=== PATIENT | female | born 1960 | race Caucasian/White ===

== ENCOUNTER → 2016-11-13 | Outpatient (CLI) | payer BC ==
[~2016-11-13] MED LIST: CLBCRM30 TOP; CLOB-65 TOP; FLUT0.15 NAE; LACO50TA PO; MULT-506 PO; ONDA4TAB10 SL; ONDA4TAB46 PO; OXCA1TAB PO; OXCA1TAB28 PO; OXCA1TAB29 PO; OXYC1TAB3 PO; POTA99TA3 PO; POTASSIUM PO; SULF800T23 PO; VALA500T60 PO; VERA240C2 PO; VITA400C15 PO; VITACAP37 PO
== END | disposition home or self-care (01) ==
LOC: C.PAPS 10:18
PROVIDERS: ATTEND Obstetrics & Gynecology
DX: Z01.419 Encounter for gynecological examination (general) (routine) without abnormal findings (principal); Z87.42 Personal history of other diseases of the female genital tract

== ENCOUNTER → 2017-01-12 | Outpatient (CLI) | payer BC ==
[~2017-01-12] MED LIST changes: +GADAVIST IV PRN
--- NOTE | 2017-01-12 14:54 | DIAGNOSTIC IMAGING REPORT ---
MRI OF THE BRAIN COMBO CLINICAL HISTORY: Seizure. History of previous craniotomy. COMPARISON STUDY: MRI of the brain dated 01/06/2016. TECHNIQUE: MRI of the brain was performed utilizing various T1 and T2-weighted sequences in the axial, sagittal, and coronal planes. Contrast-enhanced sequences were acquired following the administration of 5.5 cc of Gadavist. The examination is performed using the seizure protocol. FINDINGS: Brain parenchyma: There is minimal patchy subcortical and periventricular microangiopathic disease. Again seen is right posterior parietal encephalomalacia from resection of a large intracranial mass lesion. There is no evidence of recurrent or residual enhancing mass. Mild nonspecific enhancement is seen along the operative site, likely representing postoperative change. This has diminished from 01/06/2016. There is no evidence of hemorrhage or mass effect. There is no restricted diffusion typical for acute ischemia. [place]-white matter differentiation is preserved. Minimal postoperative extra-axial fluid is again seen at the right posterior vertex. The cerebellar tonsils are normal in configuration. Ventricles, sulci, and cisterns: Normal in configuration. Pituitary and sella: Unremarkable. Intracranial vasculature: Normal flow voids are maintained at the skull base. Orbits: The bony orbits are grossly intact. Orbital contents are normal in appearance. Sinuses and mastoids: There is a large right mastoid effusion. The left mastoid air vessels are well-pneumatized. Mild mucosal thickening is seen within the ethmoid sinuses. The remaining paranasal sinuses are clear. Calvarium: There are postoperative changes from right-sided craniotomy. No destructive calvarial lesion is seen. Cervical cord: Partially visualized cervical spinal cord is normal in morphology and signal intensity. IMPRESSION: 1. Again seen are postoperative changes and encephalomalacia from a right posterior parietal meningioma resection. There is no evidence of recurrent/residual enhancing mass lesion. 2. Mild enhancement along the resection margin is likely related to postoperative change, and this has decreased from 01/06/2016. 3. There is no hemorrhage, mass effect, or evidence of acute ischemia. 4. Right mastoid effusion. Electronically signed by: Don Baum M.D. 01/12/2017 2:52 PM Dictated Date/Time: 01/12/2017 2:46 PM
== END | disposition home or self-care (01) ==
LOC: C.MRI 13:35
PROVIDERS: ATTEND Psychiatry & Neurology Neurology
DX: R93.8 Abnormal findings on diagnostic imaging of other specified body structures (principal); G40.109 Localization-related (focal) (partial) symptomatic epilepsy and epileptic syndromes with simple partial seizures, not intractable, without status epilepticus; H74.8X1 Other specified disorders of right middle ear and mastoid

== ENCOUNTER → 2017-02-02 | Outpatient (CLI) | payer BC ==
[~2017-02-02] MED LIST changes: -GADAVIST IV PRN
== END | disposition home or self-care (01) ==
LOC: C.LABSPEC 15:34
PROVIDERS: ATTEND Obstetrics & Gynecology
DX: N76.0 Acute vaginitis (principal)

== ENCOUNTER → 2017-03-04 | Outpatient (CLI) | payer BC ==
[2017-03-04 14:42] LABS: BASO ABS # 0.01 K/uL (0-0.2); COMPLETE YES; EOS % 0.4 %; HEMATOCRIT 41.9 % (37-47); IG% 0.3 %; LYMPH % 4.5 %; LYMPH ABS # 0.96 K/uL (1.2-3.4); MEAN CELL VOLUME 97.9 fL (80-100); MEAN CORPUSCULAR HEMOGLOBIN 33.9 pg (25-34); MEAN CORPUSCULAR HGB CONC 34.6 g/dl (32-36); MEAN PLATELET VOLUME 10.1 fL (7.4-10.4); MONO % 3.7 %; NEUT % 91.1 %; PLATELET COUNT 260 K/uL (130-400); RED BLOOD COUNT 4.28 M/uL (4.2-5.4); WHITE BLOOD COUNT 21.37 K/uL (4.8-10.8)
[2017-03-04 14:55] LABS: URINE APPEARANCE CLEAR (CLEAR); URINE BILIRUBIN NEG (NEG); URINE COLOR YELLOW; URINE EPITHELIAL CELL AUTO 0-5 /lpf (0-5); URINE NITRITE NEG (NEG); URINE PH 6.5 (4.5-7.5); URINE SPECIFIC GRAVITY 1.021 (1.000-1.030); UROBILINOGEN NEG (NEG)
[2017-03-04 14:58] LABS: MANUAL MICROSCOPIC REQUIRED? NO; REVIEW REQ? NO
[2017-03-04 15:39] LABS: ALT/SGPT 37 U/L (12-78); BLOOD UREA NITROGEN 16 mg/dl (7-18); BUN/CREATININE RATIO 22.3 (10-20); CALCIUM 8.9 mg/dl (8.5-10.1); CARBON DIOXIDE 26 mmol/L (21-32); CHLORIDE 101 mmol/L (98-107); CREATININE 0.73 mg/dl (0.60-1.20); GLUCOSE 79 mg/dl (70-99); POTASSIUM 3.9 mmol/L (3.5-5.1); SODIUM 137 mmol/L (136-145)
[2017-03-04 15:42] LABS: ALB/GLOB RATIO 1.1 (0.9-2); ALKALINE PHOSPHATASE 102 U/L (45-117); AST/SGOT 28 U/L (15-37)
== END | disposition home or self-care (01) ==
LOC: C.LAB1850 13:05
PROVIDERS: ATTEND Obstetrics & Gynecology
DX: G40.109 Localization-related (focal) (partial) symptomatic epilepsy and epileptic syndromes with simple partial seizures, not intractable, without status epilepticus (principal); R39.9 Unspecified symptoms and signs involving the genitourinary system

== ENCOUNTER 2017-04-11 15:16 | Emergency (ER) | payer BC ==
[~2017-04-11] VITALS: Ht 157.5 cm; Wt 60.8 kg
[~2017-04-11 15:16] MED LIST changes: -CLBCRM30 TOP; -LACO50TA PO; -ONDA4TAB10 SL; -ONDA4TAB46 PO; -OXCA1TAB29 PO; -OXYC1TAB3 PO; -POTA99TA3 PO; -SULF800T23 PO; -VITACAP37 PO
[2017-04-11 15:19] VITALS: Ht 157.5 cm; Wt 60.8 kg
[2017-04-11] MEDS ORDERED: CLBCRM30 TOP (15:46)
[2017-04-11] MEDS ORDERED: VITACAP37 PO (15:46)
[2017-04-11] MEDS ORDERED: LACO50TA PO (15:46)
[2017-04-11] MEDS ORDERED: POTA99TA3 PO (15:46)
[2017-04-11] MEDS ORDERED: OXCA1TAB29 PO (15:46)
[2017-04-11] MEDS ORDERED: ACETAMINOPHEN IV 1,000 MG in EMPTY BAG 0 ML IV STA (16:03)
[2017-04-11] MEDS ORDERED: ONDANSETRON INJ 2 MG/ML 2 ML VIAL IV STA (16:03)
[2017-04-11] MEDS ORDERED: SODIUM CHLORIDE 0.9% 1000ML 1,000 ML IV STA (16:03)
[2017-04-11] MEDS ORDERED: MoRPHine SULFATE 10 MG/ML CARP/VIAL IV STA (16:03)
--- NOTE | 2017-04-11 16:18 | EMERGENCY ROOM VISIT NOTE ---
History First contact with patient: 15:43 Chief Complaint: FLANK PAIN Stated Complaint: PAIN IN L KIDNEY AREA,POSSIBLE KIDNEY STONE History of Present Illness The patient is a 56 year old female who presents to the Emergency Room with complaints of left flank pain that started suddenly at 11 AM today and has progressively worsened, radiating around to her left abdomen. Associated nausea and dry heaves, but she has not vomited. She states this isn't new pain and she has never had this before. She took ibuprofen at 11:30, which has not helped the pain at all. She does admit to occasional heavy drinking on the weekend, and states she drank an entire bottle of theron last night as well as some other drinks. She states she has never had any issues with withdrawal from her alcohol use. She denies any illicit drug use she does note yesterday that she had some blood in her urine, but did not have any other symptoms of dysuria or frequency. She was treated for UTI about a month ago with antibiotics, and states this cleared up without complication. She denies chest pain, shortness of breath, palpitations, dizziness or passing out, fevers or chills, diarrhea, constipation, rash. She denies any history of kidney stones in the past. Patient denies chance of , states she went through menopause over 4 years ago. Review of Systems A complete 10 point review of systems was reviewed with the patient with pertinent positives and negatives as per history of present illness. All else were negative. Past Medical/Surgical History Medical Problems: (1) Hypertension Family History Patient reports no known family medical history. Social History Smoking Status: Former Smoker Marital Status: in relationship Housing Status: lives with significant other Occupation Status: employed Current/Historical Medications Scheduled Lacosamide (Vimpat), 50 MG PO BID Multivitamin (Multivitamin), 1 TAB PO QAM Ondasetron Odt (Zofran Odt), 4 MG SL Q8H Oxcarbazepine (Oxtellar Xr), 1,800 MG PO QPM Potassium (Gnp Potassium), Unknown Dose PO QAM Sulfa/Trimethoprim (Bactrim Ds 800MG/160MG), 1 TAB PO BID Valacyclovir (Valtrex), 1 TAB PO DAILY Verapamil Hcl (Verapamil Hcl Er), 1 CAP PO QAM Vitamin E (E-400), 400 UNITS PO DAILY Scheduled PRN Clobetasol Propionate (Clobetasol Propionate Cream 0.05%), 1 APPLN TOP BID PRN for AFFECTED SKIN AREA Fluticasone Propionate (Nasal) (Flonase Allergy Relief), 1 SPRAYS KAYCEE HS PRN for Seasonal Allergies Oxycodone Ir (Roxicodone Ir), 1-2 TAB PO Q6H PRN for Severe Pain Allergies Coded Allergies: Benzoyl Peroxide (Verified Allergy, Mild, ITCHING/RASH, 04/11/17) Physical Exam Vital Signs Date Time Temp Pulse Resp B/P (MAP) Pulse Ox O2 Delivery O2 Flow Rate FiO2 04/11/17 21:09 82 18 128/76 98 04/11/17 20:19 36.6 97 18 04/11/17 19:45 100 18 136/78 95 Room Air 04/11/17 17:13 83 18 126/79 100 Room Air 04/11/17 16:47 66 04/11/17 15:19 36.4 60 18 109/71 97 Room Air Physical Exam CONSTITUTIONAL: No acute distress, but appears in a great deal of pain, fidgeting and rolling around in the stretcher and clutching her left side. She does appear moderately dehydrated. Alert and oriented X 4 with normal affect. HEENT: Normocephalic, atraumatic. Pupils equal, round and reactive to light, EOMI. TMs normal. Pharynx normal. Dry mucous membranes. NECK: Supple, full active range of motion without discomfort. RESPIRATORY: Clear to auscultation bilaterally with no wheezing, crackles, rhonchi or stridor. Equal expansion bilaterally. CARDIOVASCULAR: Regular rate and rhythm with no murmurs, rubs or gallops. Normal peripheral perfusion. No edema. GASTROINTESTINAL: Tender to palpation in the left upper quadrant and left flank. Soft and nondistended. Bowel sounds present in all quadrants. Positive CVA tenderness on the left. MUSCULOSKELETAL: Full range of motion of all joints without discomfort. INTEGUMENTARY: No rash or other significant dermatologic conditions noted. NEUROLOGIC: Cranial nerves II-XII grossly intact. No focal neurologic deficits noted. Medical Decision & Procedures ER Provider Diagnostic Interpretation: CT SCAN OF THE ABDOMEN AND PELVIS WITHOUT IV CONTRAST CLINICAL HISTORY: Left flank pain. COMPARISON STUDY: No priors. TECHNIQUE: CT scan of the abdomen and pelvis is performed from the lung bases to the proximal femora. Images are reviewed in the axial, sagittal, and coronal planes. IV contrast was not administered for this examination as per the referring clinician. Automated dose control exposure was utilized. The examination is modestly degraded by motion artifact. CT DOSE: 593.57 mGycm FINDINGS: Lung bases: The heart is normal in size and without pericardial effusion. There is a 4 mm right lower lobe pulmonary nodule seen on image #11. The lung bases are clear. Liver: The unenhanced liver is normal in size, contour, and attenuation. There is no intrahepatic biliary ductal dilatation. Gallbladder: Unremarkable. Spleen: Normal in size and attenuation. Pancreas: The unenhanced pancreas is grossly unremarkable. Adrenal glands: Unremarkable. Kidneys: The unenhanced kidneys are normal in size. There is a 10 mm obstructing calculus in the left proximal ureter at the level of L3 seen on axial image #155. This causes moderate left-sided hydronephrosis. There is associated left-sided perinephric stranding and fluid. There are least 3 additional nonobstructing calculi in the left lower pole measuring up to 6 mm. No right-sided renal calculi are seen and there is no right-sided hydronephrosis. There is no evidence of contour deforming renal mass lesion. Abdominal vasculature: The abdominal aorta is normal in course and caliber noting mild atherosclerotic calcification. Bowel: The small bowel and colon are normal in course and caliber. There is a 2.0 x 1.9 x 1.1 cm densely calcified soft tissue nodule arising from the serosal surface of the descending colon on axial image #259. The appendix is well-visualized and normal. Peritoneum: There is no intraperitoneal free air or abdominal ascites. There is a small fat-containing umbilical hernia. Lymphadenopathy: None. Pelvic viscera: The bladder, uterus, and adnexa are normal as visualized. Ovarian follicles are incidentally noted. Skeletal structures: The skeletal structures are osteopenic. Mild lumbosacral spondylosis is observed. No lytic or blastic lesions are seen. IMPRESSION: 1. There is a 10 mm obstructing calculus in the proximal left ureter. This causes moderate left-sided hydronephrosis. 2. Additional nonobstructing left renal calculi as above. No right renal stones are seen. 3. There is a 2.0 cm densely calcified soft tissue lesion arising from the serosal surface of the descending colon. This is pathologically indeterminant, and may represent a leiomyoma or possibly a fibrous stromal tumor. Nonemergent gastroenterology follow-up is recommended. 4. There is a 4 mm right lower lobe pulmonary nodule. This is pathologically indeterminant but of low suspicion. If clinically warranted a nonemergent follow-up chest CT could be considered for further evaluation of the thorax. 5. Additional findings as above. Laboratory Results 04/11/17 16:45 Red Blood Count 4.27, Mean Corpuscular Volume 95.8, Mean Corpuscular Hemoglobin 33.7, Mean Corpuscular Hemoglobin Concent 35.2, Mean Platelet Volume 9.7, Neutrophils (%) (Auto) 95.0, Lymphocytes (%) (Auto) 3.6, Monocytes (%) (Auto) 1.0, Eosinophils (%) (Auto) 0.1, Basophils (%) (Auto) 0.0, Neutrophils # (Auto) 14.12, Lymphocytes # (Auto) 0.54, Monocytes # (Auto) 0.15, Eosinophils # (Auto) 0.02, Basophils # (Auto) 0.00 04/11/17 16:45 Test 04/11/17 16:45 04/11/17 16:49 04/11/17 18:30 White Blood Count 14.88 K/uL (4.8-10.8) Red Blood Count 4.27 M/uL (4.2-5.4) Hemoglobin 14.4 g/dL (12.0-16.0) Hematocrit 40.9 % (37-47) Mean Corpuscular Volume 95.8 fL (80-100) Mean Corpuscular Hemoglobin 33.7 pg (25-34) Mean Corpuscular Hemoglobin Concent 35.2 g/dl (32-36) Platelet Count 164 K/uL (130-400) Mean Platelet Volume 9.7 fL (7.4-10.4) Neutrophils (%) (Auto) 95.0 % Lymphocytes (%) (Auto) 3.6 % Monocytes (%) (Auto) 1.0 % Eosinophils (%) (Auto) 0.1 % Basophils (%) (Auto) 0.0 % Neutrophils # (Auto) 14.12 K/uL (1.4-6.5) Lymphocytes # (Auto) 0.54 K/uL (1.2-3.4) Monocytes # (Auto) 0.15 K/uL (0.11-0.59) Eosinophils # (Auto) 0.02 K/uL (0-0.5) Basophils # (Auto) 0.00 K/uL (0-0.2) RDW Standard Deviation 46.1 fL (36.4-46.3) RDW Coefficient of Variation 13.4 % (11.5-14.5) Immature Granulocyte % (Auto) 0.3 % Immature Granulocyte # (Auto) 0.05 K/uL (0.00-0.02) Anion Gap 8.0 mmol/L (3-11) Est Creatinine Clear Calc Drug Dose 58.7 ml/min Estimated GFR () 80.2 Estimated GFR (Non- 69.2 BUN/Creatinine Ratio 18.5 (10-20) Calcium Level 8.4 mg/dl (8.5-10.1) Total Bilirubin 0.6 mg/dl (0.2-1) Direct Bilirubin 0.2 mg/dl (0-0.2) Aspartate Amino Transf (AST/SGOT) 20 U/L (15-37) Alanine Aminotransferase (ALT/SGPT) 35 U/L (12-78) Alkaline Phosphatase 95 U/L (45-117) Total Protein 6.1 gm/dl (6.4-8.2) Albumin 3.7 gm/dl (3.4-5.0) Lipase 84 U/L (73-393) Ethyl Alcohol mg/dL < 3.0 mg/dl (0-3) Bedside Lactic Acid Venous 1.50 mmol/L (0.90-1.70) Urine Color YELLOW Urine Appearance CLEAR (CLEAR) Urine pH 5.0 (4.5-7.5) Urine Specific [place] 1.019 (1.000-1.030) Urine Protein NEG (NEG) Urine Glucose (UA) NEG (NEG) Urine Ketones NEG (NEG) Urine Occult Blood NEG (NEG) Urine Nitrite NEG (NEG) Urine Bilirubin NEG (NEG) Urine Urobilinogen NEG (NEG) Urine Leukocyte Esterase MODERATE (NEG) Urine WBC (Auto) 10-30 /hpf (0-5) Urine RBC (Auto) 0-4 /hpf (0-4) Urine Hyaline Casts (Auto) 0 /lpf (0-5) Urine Epithelial Cells (Auto) 5-10 /lpf (0-5) Urine Bacteria (Auto) NEG (NEG) Medications Administered Medications (Trade) Dose Ordered Sig/Cecelia Route Start Time Stop Time Status Last Admin Dose Admin Sodium Chloride 1,000 ml @ 999 mls/hr Q1H1M STAT IV 04/11/17 16:03 04/11/17 17:03 DC 04/11/17 17:11 999 MLS/HR Morphine Sulfate (MoRPHine SULFATE INJ) 6 mg NOW STAT IV 04/11/17 16:03 04/11/17 16:06 DC 04/11/17 17:12 6 MG Ondansetron HCl (Zofran Inj) 4 mg NOW STAT IV 04/11/17 16:03 04/11/17 16:06 DC 04/11/17 17:11 4 MG Acetaminophen 1000 mg/Empty Bag 100 ml @ 400 mls/hr NOW STAT IV 04/11/17 16:03 04/11/17 16:17 DC 04/11/17 17:24 400 MLS/HR Trimethoprim/ Sulfamethoxazole (Septra Ds 800/ 160MG Tab) 1 tab NOW ONCE PO 04/11/17 20:30 04/11/17 20:31 DC 04/11/17 21:09 1 TAB Oxycodone HCl (Roxicodone Immediate Rel 5MG Home Pack) 1 homepack UD ONCE PO 04/11/17 20:30 04/11/17 20:31 DC 04/11/17 21:09 1 HOMEPACK Ondansetron HCl (ZOFRAN ODT 4MG Home Pack) 1 homepack UD ONCE PO 04/11/17 20:30 04/11/17 20:31 DC 04/11/17 21:09 1 HOMEPACK Medical Decision CC: Patient presenting with complaint of left flank pain Interpretation of Labs: Leukocytosis, no anemia, no significant electrolyte abnormalities, normal renal function, normal liver function, normal lipase. Lactic acid within normal limits. Urinalysis with leuk esterase and 10-30 WBCs , no nitrites and no bacteria. Differential Diagnosis: Includes, but not limited to ureteral stone, ureteral colic, UTI, pyelonephritis, pancreatitis, gastritis, cholecystitis, cholelithiasis, small bowel obstruction, electrolyte abnormality, dehydration, among others. Medication Reconciliation: I attest that I have personally reviewed the patient' s current medication list. Vital signs review: I reviewed the patient's vital signs and interpret them as follows: T: Afebrile; BP: Normotensive; HR: Within normal limits; RR: Within normal limits; Pulse Ox: Within normal limits on room air. Blood pressure screening: The patient was found to have normal blood pressure on screening and does not require follow-up for repeat blood pressure check. Summary: Patient was evaluated at bedside, history of physical exam performed. Patient is alert and in no acute distress, but quite uncomfortable with pain. She has tenderness in the left flank and left upper quadrant. She has left CVA tenderness. History and physical findings consistent with a possible stone, orders were placed at bedside for labs, urinalysis, CT abdomen and pelvis without contrast to evaluate for ureteral stone. Patient discussed with Dr. Ramierz, who agrees with my assessment and plan. Labs reviewed, leukocytosis noted that this is improved from previous WBC count in March. Urinalysis somewhat equivocal for UTI, no nitrites or bacteria, but does have leuk esterase with 10-30 whites. Urine culture pending. CT of the abdomen/pelvis reveals a 10 mm proximal obstructing stone on the left with moderate hydronephrosis and perinephric stranding. I spoke with Dr. Patel, urology, at 7:30 PM regarding the patient's findings and clinical condition. He states if the patient is stable and her pain is controlled, she may be discharged home and he will arrange for outpatient follow-up to address her obstructed stone. Dr. Patel also recommends Bactrim to cover for possible UTI and will follow the urine culture. Patient reassessed multiple times throughout ED stay, she reports her pain is fully resolved after pain medications and she has been tolerating oral liquids. I discussed all results with the patient and the option of admission versus discharge home, she states she would really prefer not to be admitted. I discussed the plan for follow-up with urology for management of her stone. I provided the patient with take-home packs of oxycodone and Zofran and gave her first dose of Bactrim here in the ED. Prescriptions sent to pharmacy. Patient instructed on strict return precautions should her symptoms worsen, she verbalized understanding. Patient discharged home in stable condition, ambulatory and well appearing. Impression Primary Impression: Hydronephrosis with urinary obstruction due to ureteral calculus Departure Information Dispostion Home / Self-Care Condition GOOD Prescriptions Oxycodone Ir (Roxicodone Ir) 5 Mg Tab 1-2 TAB PO Q6H Y for Severe Pain for 3 Days, #24 TAB Prov: Kiersten Padron, RX SPECIALIST 04/11/17 Ondasetron Odt (ZOFRAN ODT) 4 Mg Tab 4 MG SL Q8H for Nausea for 5 Days, #15 TAB Prov: Kiersten PadronDavid, RX SPECIALIST 04/11/17 Sulfa/Trimethoprim (Bactrim Ds 800MG/160MG) Tab 1 TAB PO BID for 7 Days, #13 TAB Prov: Kiersten PadronDavid, RX SPECIALIST 04/11/17 Referrals Yury Cruz M.D. (PCP) Attila Patel MD, Urology Patient Instructions ED Stone Renal W Colic, My [facility] Additional Instructions You have been treated in the Emergency Department today for a Kidney Stone ( Nephrolithiasis). You have received pain medicine in the emergency department which impairs your ability to operate a vehicle. It is illegal for you to drive after receiving these medicines. You may take Tylenol 1000 mg every 8 hours as needed for pain. You have been prescribed oxycodone to be used for severe pain control. This is a narcotic medication. You cannot drive or consume alcohol while on this medicine. This medicine should only be used for pain that cannot be controlled with [id number] pain medicines. You have been prescribed Zofran to be used for any nausea or vomiting. Take as prescribed. You have been prescribed Bactrim, which is an antibiotic, to treat for possible urinary tract infection. Take this antibiotic as prescribed for the full 7 days. Do not take any NSAIDs until after you have had your procedure to remove your kidney stone. These include medications like aspirin, Advil, ibuprofen, Aleve, Motrin, etc. The urology clinic will call you to set up an appointment this week for your procedure to manage your kidney stone. Please return to the Emergency Department if your symptoms worsen, including severe intractable pain, fevers, chills, persistent vomiting, if you're unable to urinate for more than 12 hours, or large amounts of blood in your urine.
[2017-04-11 16:58] LABS: COMPLETE YES; EOS % 0.1 %; HEMATOCRIT 40.9 % (37-47); IG% 0.3 %; LYMPH % 3.6 %; LYMPH ABS # 0.54 K/uL (1.2-3.4); MEAN CELL VOLUME 95.8 fL (80-100); MEAN CORPUSCULAR HEMOGLOBIN 33.7 pg (25-34); MEAN CORPUSCULAR HGB CONC 35.2 g/dl (32-36); MEAN PLATELET VOLUME 9.7 fL (7.4-10.4); PLATELET COUNT 164 K/uL (130-400); RED BLOOD COUNT 4.27 M/uL (4.2-5.4); WHITE BLOOD COUNT 14.88 K/uL (4.8-10.8)
[2017-04-11 17:16] LABS: BUN/CREATININE RATIO 18.5 (10-20); CALCIUM 8.4 mg/dl (8.5-10.1); CREATININE 0.93 mg/dl (0.60-1.20); POTASSIUM 3.8 mmol/L (3.5-5.1)
--- NOTE | 2017-04-11 18:03 | DIAGNOSTIC IMAGING REPORT ---
CT SCAN OF THE ABDOMEN AND PELVIS WITHOUT IV CONTRAST CLINICAL HISTORY: Left flank pain. COMPARISON STUDY: No priors. TECHNIQUE: CT scan of the abdomen and pelvis is performed from the lung bases to the proximal femora. Images are reviewed in the axial, sagittal, and coronal planes. IV contrast was not administered for this examination as per the referring clinician. Automated dose control exposure was utilized. The examination is modestly degraded by motion artifact. CT DOSE: 593.57 mGycm FINDINGS: Lung bases: The heart is normal in size and without pericardial effusion. There is a 4 mm right lower lobe pulmonary nodule seen on image #11. The lung bases are clear. Liver: The unenhanced liver is normal in size, contour, and attenuation. There is no intrahepatic biliary ductal dilatation. Gallbladder: Unremarkable. Spleen: Normal in size and attenuation. Pancreas: The unenhanced pancreas is grossly unremarkable. Adrenal glands: Unremarkable. Kidneys: The unenhanced kidneys are normal in size. There is a 10 mm obstructing calculus in the left proximal ureter at the level of L3 seen on axial image #155. This causes moderate left-sided hydronephrosis. There is associated left-sided perinephric stranding and fluid. There are least 3 additional nonobstructing calculi in the left lower pole measuring up to 6 mm. No right-sided renal calculi are seen and there is no right-sided hydronephrosis. There is no evidence of contour deforming renal mass lesion. Abdominal vasculature: The abdominal aorta is normal in course and caliber noting mild atherosclerotic calcification. Bowel: The small bowel and colon are normal in course and caliber. There is a 2.0 x 1.9 x 1.1 cm densely calcified soft tissue nodule arising from the serosal surface of the descending colon on axial image #259. The appendix is well-visualized and normal. Peritoneum: There is no intraperitoneal free air or abdominal ascites. There is a small fat-containing umbilical hernia. Lymphadenopathy: None. Pelvic viscera: The bladder, uterus, and adnexa are normal as visualized. Ovarian follicles are incidentally noted. Skeletal structures: The skeletal structures are osteopenic. Mild lumbosacral spondylosis is observed. No lytic or blastic lesions are seen. IMPRESSION: 1. There is a 10 mm obstructing calculus in the proximal left ureter. This causes moderate left-sided hydronephrosis. 2. Additional nonobstructing left renal calculi as above. No right renal stones are seen. 3. There is a 2.0 cm densely calcified soft tissue lesion arising from the serosal surface of the descending colon. This is pathologically indeterminant, and may represent a leiomyoma or possibly a fibrous stromal tumor. Nonemergent gastroenterology follow-up is recommended. 4. There is a 4 mm right lower lobe pulmonary nodule. This is pathologically indeterminant but of low suspicion. If clinically warranted a nonemergent follow-up chest CT could be considered for further evaluation of the thorax. 5. Additional findings as above. Electronically signed by: Don Baum M.D. 04/11/2017 6:02 PM Dictated Date/Time: 04/11/2017 5:50 PM
[2017-04-11 19:01] LABS: MANUAL MICROSCOPIC REQUIRED? NO; REVIEW REQ? NO; URINE APPEARANCE CLEAR (CLEAR); URINE BILIRUBIN NEG (NEG); URINE COLOR YELLOW; URINE NITRITE NEG (NEG); URINE SPECIFIC GRAVITY 1.019 (1.000-1.030); UROBILINOGEN NEG (NEG)
[2017-04-11] MEDS ORDERED: SULF800T23 PO (20:07)
[2017-04-11] MEDS ORDERED: ONDA4TAB10 SL (20:07)
[2017-04-11] MEDS ORDERED: OXYC1TAB3 PO (20:07)
[2017-04-11 20:19] VITALS: TEMP 36.6
--- NOTE | 2017-04-11 20:20 | DIAGNOSTIC IMAGING REPORT ---
KUB CLINICAL HISTORY: Left ureteral calculus. FINDINGS: 2 AP supine abdominal radiographs are correlated with abdominal CT performed 3 hours previously on 04/11/2017. There is a nonobstructed abdominal bowel gas pattern. A calcified 1.8 cm nodule arising the descending colon is again seen in the left lower quadrant. There is unchanged appearance of a 10 mm obstructing calculus in the left proximal ureter. This projects just below the left transverse process of L2. Additional nonobstructing calculi project over the lower pole of the left kidney. No calcifications project over the right kidney. The lung bases are clear. The bony structures appear intact. IMPRESSION: 1. Unchanged position of a 10 mm left proximal ureteral stone is compared to the abdominal CT performed several hours previously. 2. Additional nonobstructing left calculi are noted. 3. A calcified soft tissue nodule arising from the descending colon in the left lower quadrant is again noted. This was better characterized on today's abdominal CT. Electronically signed by: Don Baum M.D. 04/11/2017 8:19 PM Dictated Date/Time: 04/11/2017 8:16 PM
[2017-04-11] MEDS ORDERED: ONDANSETRON HOME PACK 4MG OD TAB PO ONE (20:30)
[2017-04-11] MEDS ORDERED: SULFAMETHOXAZOLE/TRIMETHOPRIM DS 800/160MG TAB PO ONE (20:30)
[2017-04-11] MEDS ORDERED: OXYCODONE IR HOME PACK PO ONE (20:30)
[2017-04-11 21:09] VITALS: BP 128/76; PULSE 82; O2SAT 98
[2017-04-12] MEDS ORDERED: OXYC1TAB3 PO (11:21)
[2017-04-12] MEDS ORDERED: SULF800T23 PO (11:21)
[2017-04-12] MEDS ORDERED: ONDA4TAB46 PO (11:21)
[2017-04-16] MEDS ORDERED: SULF800T23 PO (13:25)
== END 2017-04-11 21:12 | disposition home or self-care (01) ==
LOC: C.EDB 15:17 → C.EDA 21:12
DX: N13.2 Hydronephrosis with renal and ureteral calculous obstruction (principal); I10 Essential (primary) hypertension; Z87.891 Personal history of nicotine dependence

== ENCOUNTER → 2017-04-14 | Outpatient (CLI) | payer BC ==
[~2017-04-14] MED LIST changes: +CLBCRM30 TOP; -CLOB-65 TOP; +LACO50TA PO; +ONDA4TAB46 PO; -OXCA1TAB PO; -OXCA1TAB28 PO; +OXCA1TAB29 PO; +OXYC1TAB3 PO; +POTA99TA3 PO; -POTASSIUM PO; +SULF800T23 PO; -VITA400C15 PO; +VITACAP37 PO
--- NOTE | 2017-04-14 13:18 | DIAGNOSTIC IMAGING REPORT ---
CHEST 2 VIEWS ROUTINE CLINICAL HISTORY: N20.0 [id number] nephrocalcinosis COMPARISON STUDY: 09/19/2015 FINDINGS: The bones soft tissues and hemidiaphragms are normal. The cardiomediastinal silhouette is normal. The lungs are clear. The pulmonary vasculature is normal. IMPRESSION: Negative chest. Electronically signed by: Aniket Marr M.D. 04/14/2017 1:17 PM Dictated Date/Time: 04/14/2017 1:17 PM
== END | disposition home or self-care (01) ==
LOC: C.RAD1850 12:58
PROVIDERS: ATTEND Nurse Practitioner Adult Health
DX: N20.0 Calculus of kidney (principal)

== ENCOUNTER → 2017-04-14 | Outpatient (CLI) | payer BC | END | disposition home or self-care (01) | LOC: C.LABSPEC 17:26 | PROVIDERS: ATTEND Urology | DX: N20.0 Calculus of kidney (principal) ==

== ENCOUNTER → 2017-04-16 | Day surgery (SDC) | payer BC ==
[2017-04-12 11:22] VITALS: Ht 157.5 cm; Wt 61.4 kg
[~2017-04-16] VITALS: Ht 157.5 cm; Wt 61.4 kg
[~2017-04-16] MED LIST changes: +ATROPINE SULFATE 0.1 MG/ML 5ML SYR IV PRN; +CIPROFLOXACIN 400MG / D5W IV SCH; +DEXAMETHASONE SOD INJ 4 MG/ML VIAL ONE; +EpHEDrine SULFATE INJ 50 MG/ML AMP IV PRN; +FENTANYL CITRATE INJ 50 MCG/1 ML 2 ML VIAL IV PRN; +FENTANYL CITRATE INJ 50 MCG/1 ML 2 ML VIAL ONE; +FLUMAZENIL 0.1 MG/1 ML 10 ML VIAL IV ONE; +GENTAMICIN SULFATE 40 MG/ML 2 ML VIAL ONE; +LACTATED RINGER'S 1000ML 1,000 ML IV SCH; +LIDOCAINE HCL 2% 2 ML VIAL (20MG/ML) ONE; +MIDAZOLAM HCL 1 MG/ML 2ML VIAL ONE; +ONDANSETRON INJ 2 MG/ML 2 ML VIAL IV PRN; +ONDANSETRON INJ 2 MG/ML 2 ML VIAL ONE; +OXYCODONE/ACETAMINOPHEN 5-325 TAB PO PRN; +PROMETHAZINE HCL INJ 6.25 MG in SODIUM CHLORIDE 0.9% 50ML 50 ML IV PRN; +PROPOFOL IV EMULSION 10 MG/ML 20 ML VIAL IV ONE
--- NOTE | 2017-04-16 12:25 | History & Physical Bridge Note ---
H&P Re-Evaluation Bridge Note: I have examined the patient, reviewed the History & Physical and in the interval since the performance of the History & Physical I have noted the following changes of clinical significance: Positive culture for 50K Proteus noted - has been on Bactrim x 5 days BID, will extend postop, ESWL as planned. HM
--- NOTE | 2017-04-16 13:27 | Discharge Instructions ---
Discharge Instructions Date of Service Apr 16, 2017. Admission Reason for Admission: Stones Discharge Discharge Diagnosis / Problem: Left ureteral stone s/p ESWL Discharge Goals Goal(s): Decrease discomfort, Improve function, Improve disease control, Therapeutic intervention Activity Recommendations Activity Limitations: as noted below Lifting Limitations: no more than 25 pounds, gradually increase as tolerated ( x 3 days) Exercise/Sports Limitations: rest today, gradually increase as tolerated (x 3 days) May Resume Sexual Activity: when tolerated Shower/Bathe: no limitations Driving or Machine Use: resume 1 day after discharge . Instructions / Follow-Up Instructions / Follow-Up Strain urine, bring fragments in to office visit Follow-up in office as scheduled, KUB Xray before visit Discharge Diet Recommended Diet: Regular Diet (good fluid intake) Procedures Procedures Performed: Left ureteral ESWL Pending Studies Studies pending at discharge: no Medical Emergencies . Who to Call and When: Medical Emergencies: If at any time you feel your situation is an emergency, please call 911 immediately. . Non-Emergent Contact Non-Emergency issues call your: Urologist Call Non-Emergent contact if: you have a fever, temperature is above 101, your pain is not controlled, your pain is worsening, your pain is unusual for you, your pain is concerning you, you have any medication questions . . "Provider Documentation" section prepared by Attila Patel. . VTE Core Measure Inpt VTE Proph given/why not?: SCD's
--- NOTE | 2017-04-16 13:28 | [facility] Operative Report ---
Operative Report Operative Date Apr 16, 2017. Pre-Operative Diagnosis Left UPJ stone Post-Operative Diagnosis Same Procedure(s) Performed Left ureteral ESWL Surgeon Jorge Mckeon Monotypist Surgeon(s) NA Estimated Blood Loss NA Findings Excellent stone fragmentation Specimens NA Drains NA Anesthesia GALMA Complication(s) None Disposition Recovery Room / PACU Indications Left ureteral stone Description of Procedure The patient was brought to the litho suite. He was correctly identified and the stone was visualized on his most recent x-rays. After the correct time out was performed the patient was positioned over the therapy head. An adequate level of anesthesia was administered. The extracorporeal shockwave lithotripsy treatment was then commenced. Please see the [place] sheet for complete treatment summary. After completion of the procedure the patient was taken to the recovery room in stable condition. I attest to the content of the Intraoperative Record and any orders documented therein. Any exceptions are noted below.
--- NOTE | 2017-04-16 14:32 | [facility] Post Operative Brief Note ---
Immediate Operative Summary Operative Date Apr 16, 2017. Pre-Operative Diagnosis Left UPJ stone Post-Operative Diagnosis Same Procedure(s) Performed Left Extracorporeal Shock Wave Lithotripsy Surgeon Dr. Carmen Patel Candy Vendor Surgeon(s) None Estimated Blood Loss 0 mL Findings Good stone fragmentation on fluoro Specimens None Drains NA Anesthesia GALMA Complication(s) None Disposition Recovery Room / PACU
[2017-04-16 15:15] VITALS: BP 159/91; PULSE 63; TEMP 36.1; O2SAT 98
--- NOTE | 2017-04-16 15:20 | Anesthesia Progress Nt - [facility] ---
Anesthesia Post Op Note Date & Time Apr 16, 2017 at 15:20 Vital Signs Pain Intensity: 0 Vital Signs Past 12 Hours Date Time Temp Pulse Resp B/P (MAP) Pulse Ox O2 Delivery O2 Flow Rate FiO2 04/16/17 15:15 36.1 63 159/91 (113) 98 Room Air 04/16/17 15:02 63 18 94 04/16/17 15:02 63 18 04/16/17 15:01 139/100 04/16/17 14:57 60 16 04/16/17 14:57 60 16 95 04/16/17 14:56 146/92 04/16/17 14:55 62 15 94 04/16/17 14:55 62 15 04/16/17 14:54 64 15 94 04/16/17 14:54 64 15 04/16/17 14:53 36.7 94 Room Air 04/16/17 14:51 144/92 04/16/17 14:49 62 14 04/16/17 14:49 61 14 97 04/16/17 14:48 70 13 98 04/16/17 14:48 66 13 04/16/17 14:46 146/97 04/16/17 14:43 68 12 04/16/17 14:43 70 12 98 04/16/17 14:42 63 17 04/16/17 14:42 63 17 98 04/16/17 14:41 147/96 04/16/17 14:37 64 16 04/16/17 14:37 64 16 98 04/16/17 14:36 146/99 04/16/17 14:33 155/102 04/16/17 14:32 36.3 80 18 155/102 95 Mask 6 04/16/17 14:32 85 04/16/17 14:32 85 95 04/16/17 12:27 36.7 64 20 154/100 (118) 96 Room Air Notes Mental Status: alert / awake / arousable, participated in evaluation Pt Amnestic to Procedure: Yes Nausea / Vomiting: adequately controlled Pain: adequately controlled Airway Patency, RR, SpO2: stable & adequate BP & HR: stable & adequate Hydration State: stable & adequate Anesthetic Complications: no major complications apparent
== END | disposition home or self-care (01) ==
LOC: X.SURG 11:56
PROVIDERS: ATTEND Urology
DX: N20.0 Calculus of kidney (principal); Z86.011 Personal history of benign neoplasm of the brain; Z86.010 Personal history of colon polyps; E78.5 Hyperlipidemia, unspecified; Z80.3 Family history of malignant neoplasm of breast; Z81.8 Family history of other mental and behavioral disorders; Z80.41 Family history of malignant neoplasm of ovary; Z83.6 Family history of other diseases of the respiratory system; Z82.49 Family history of ischemic heart disease and other diseases of the circulatory system

== ENCOUNTER → 2017-04-22 | Outpatient (CLI) | payer BC ==
[~2017-04-22] MED LIST changes: -ATROPINE SULFATE 0.1 MG/ML 5ML SYR IV PRN; -CIPROFLOXACIN 400MG / D5W IV SCH; -DEXAMETHASONE SOD INJ 4 MG/ML VIAL ONE; -EpHEDrine SULFATE INJ 50 MG/ML AMP IV PRN; -FENTANYL CITRATE INJ 50 MCG/1 ML 2 ML VIAL IV PRN; -FENTANYL CITRATE INJ 50 MCG/1 ML 2 ML VIAL ONE; -FLUMAZENIL 0.1 MG/1 ML 10 ML VIAL IV ONE; -GENTAMICIN SULFATE 40 MG/ML 2 ML VIAL ONE; -LACTATED RINGER'S 1000ML 1,000 ML IV SCH; -LIDOCAINE HCL 2% 2 ML VIAL (20MG/ML) ONE; -MIDAZOLAM HCL 1 MG/ML 2ML VIAL ONE; -ONDANSETRON INJ 2 MG/ML 2 ML VIAL IV PRN; -ONDANSETRON INJ 2 MG/ML 2 ML VIAL ONE; -OXYCODONE/ACETAMINOPHEN 5-325 TAB PO PRN; -PROMETHAZINE HCL INJ 6.25 MG in SODIUM CHLORIDE 0.9% 50ML 50 ML IV PRN; -PROPOFOL IV EMULSION 10 MG/ML 20 ML VIAL IV ONE
--- NOTE | 2017-04-22 13:18 | DIAGNOSTIC IMAGING REPORT ---
(CHEST) THORAX WITHOUT CLINICAL HISTORY: R91.1 Pulmonary [id number] COMPARISON STUDY: 04/30/2006 , abdominal CT scan dated 04/11/2017 CT DOSE: 583.65 mGycm TECHNIQUE: CT of the thorax was performed from the thoracic inlet to the lung bases. Images are reviewed in the axial, sagittal, and coronal planes. IV contrast was not administered for this examination. A dose lowering technique was utilized adhering to the principles of ALARA. FINDINGS: Thyroid: Imaged portions of the thyroid gland are normal in appearance. Thoracic aorta: The thoracic aorta is normal in course and caliber, noting standard 3 vessel arch anatomy. Heart: The heart is normal in size and configuration, without pericardial effusion. Lungs and pleural spaces: There are no pleural effusions. There is a stable 4 mm solid right lower lobe pulmonary nodule. There is a stable subpleural 3 mm right middle lobe pulmonary nodule. There is a stable 4 mm perifissural right upper lobe pulmonary nodule. There is a new 6 mm groundglass pulmonary nodule within the right upper lobe as visualized in image #85/301. There is a new 1 cm groundglass pulmonary nodule within the right upper lobe as visualized in image #51/301. There is a stable 6 mm right apical groundglass pulmonary nodule as visualized in image #22/301. There is a stable 5 mm left upper lobe groundglass pulmonary nodule as visualized in image #59/301. There is a stable 3 mm left upper lobe groundglass pulmonary nodule as visualized in image #77/301. There is a mixed solid and groundglass 4.5 mm left lower lobe pulmonary nodule as visualized in image #162/301 Mediastinum: There is no evidence of pathologic adenopathy by size criteria. Mahnaz: There is no evidence of pathologic adenopathy Axilla: There is no evidence of pathologic axillary adenopathy by size criteria. Upper abdomen: Partially visualized upper abdominal viscera is within normal limits. Skeletal structures: There are no lytic or blastic osseous lesions. IMPRESSION: 1. Multiple solid and groundglass pulmonary nodules. 2. The new 1 cm groundglass right upper lobe pulmonary nodule as visualized in image #51/301, the new 6 mm right apical groundglass pulmonary nodule as visualized in image #22/301 as well as the mixed solid and groundglass 4.5 mm left lower lobe pulmonary nodule as visualized in image #162/301 must be viewed as suspicious for low-grade neoplasms. 3-[address] follow-up is recommended per Fleischner criteria. Please refer to below summary of Fleischner criteria recommendations for follow-up of incidental CT nodules (Linda Mcclure, Guidelines for management of small pulmonary nodules detected on CT scans: A statement from the Fleischner Society, Radiology 237: [phone].) SOLID NODULES Solitary nodule size: <6 mm * low risk patients: no follow-up needed * high risk patients: optional CT at 12 months Solitary nodule size: 6-8 mm * low risk patients: follow-up at 6-12 months, then consider further follow-up at 18-24 months * high risk patients: initial follow-up CT at 6-12 months and then at 18-24 months if no change Solitary nodule size: >8 mm * either low or high risk patients - consider follow-up CT at 3 months, and/or CT-PET, and/or biopsy Multiple nodules size: <6 mm * low risk patients: no routine follow-up * high risk patients: optional CT at 12 months Multiple nodules size: 6-8 mm * low risk patients: follow-up at 3-6 months, then consider further follow-up at 18-24 months * high risk patients: follow-up at 3-6 months, then at 18-24 months if no change Multiple nodules size: >8 mm * low risk patients: follow-up at 3-6 months, then consider further follow-up at 18-24 months * high risk patients: follow-up at 3-6 months, then at 18-24 months if no change Note: newly detected indeterminate nodule in persons 35 years of age or older. * low risk patients: minimal or absent history of smoking and/or other known risk factors * high risk patients: history of smoking or of other known risk factors (e.g. first degree relative with lung cancer, or exposure to asbestos, radon, uranium) * if a nodule up to 8 mm is partly solid or is ground glass further follow-up is required after 24 months to exclude possible slow growing adenocarcinoma (YURI) SUBSOLID NODULES Solitary pure ground-glass nodule * nodule size <6 mm - no CT follow-up required * nodule size >=6 mm - follow-up CT at 6-12 months, then every 2 years until 5 years Solitary part-solid nodule * nodule size <6 mm - no CT follow-up required * nodule size >=6 mm - follow-up CT at 3-6 months. If unchanged, and solid component remains <6 mm, then annual follow-up for 5 years Multiple subsolid nodules * nodule size <6 mm - follow-up CT at 3-6 months, consider further follow-up at 2 and 4 years if stable * nodule size >=6 mm - follow-up CT at 3-6 months, subsequent management based on the most suspicious nodule(s) Electronically signed by: Andrea Landa M.D. 04/22/2017 1:17 PM Dictated Date/Time: 04/22/2017 1:02 PM
== END | disposition home or self-care (01) ==
LOC: C.CTS 12:38
PROVIDERS: ATTEND Internal Medicine Pulmonary Disease
DX: R91.8 Other nonspecific abnormal finding of lung field (principal)

== ENCOUNTER → 2017-04-26 | Outpatient (CLI) | payer BC ==
--- NOTE | 2017-04-26 12:27 | DIAGNOSTIC IMAGING REPORT ---
KUB HISTORY: 56 years-old Female N20.0 nephrolithiasis COMPARISON: KUB radiograph 04/11/2017, CT 04/11/2017. TECHNIQUE: KUB radiograph FINDINGS: 1.2 x 1.8 cm calcification of the lateral left pelvis correlating with a nodule adjacent to the descending colon on comparison CT study is again noted. The previously noted 10 mm calculus of the left kidney within the expected region of the transverse process on the left at L2 is not identified. Bowel gas pattern is nonobstructive. The previously noted additional nonobstructing renal calculi are not as clearly seen. IMPRESSION: Previously noted 10 mm calculus of the left kidney is not clearly seen on today's study. This may be obscured by bowel gas or may have passed in the interval. The above report was generated using voice recognition software. It may contain grammatical, syntax or spelling errors. Electronically signed by: Tacho Hunter M.D. 04/26/2017 12:26 PM Dictated Date/Time: 04/26/2017 12:23 PM
== END | disposition home or self-care (01) ==
LOC: C.RAD1850 12:04
PROVIDERS: ATTEND Nurse Practitioner Adult Health
DX: N20.0 Calculus of kidney (principal)

== ENCOUNTER → 2017-04-27 | Outpatient (CLI) | payer BC | END | disposition home or self-care (01) | LOC: C.LABSPEC 17:03 | PROVIDERS: ATTEND Urology | DX: N20.0 Calculus of kidney (principal) ==

== ENCOUNTER → 2017-07-16 | Outpatient (CLI) | payer BC ==
[2017-07-16 17:56] LABS: URINE APPEARANCE CLEAR (CLEAR); URINE BILIRUBIN NEG (NEG); URINE COLOR YELLOW; URINE EPITHELIAL CELL AUTO >30 /lpf (0-5); URINE NITRITE NEG (NEG); URINE PH 6.5 (4.5-7.5); URINE SPECIFIC GRAVITY 1.028 (1.000-1.030); UROBILINOGEN NEG (NEG)
[2017-07-16 17:57] LABS: MANUAL MICROSCOPIC REQUIRED? NO; REVIEW REQ? NO
== END | disposition home or self-care (01) ==
LOC: C.LABSPEC 17:24
PROVIDERS: ATTEND Physician Assistant
DX: R39.9 Unspecified symptoms and signs involving the genitourinary system (principal)

== ENCOUNTER → 2017-09-16 | Outpatient (CLI) | payer BC ==
[2017-09-16 16:40] LABS: BASO % 0.2 %; BASO ABS # 0.01 K/uL (0-0.2); COMPLETE YES; EOS % 1.4 %; HEMATOCRIT 41.7 % (37-47); IG% 0.2 %; LYMPH % 23.2 %; LYMPH ABS # 1.44 K/uL (1.2-3.4); MEAN CELL VOLUME 99.3 fL (80-100); MEAN CORPUSCULAR HEMOGLOBIN 35.2 pg (25-34); MEAN CORPUSCULAR HGB CONC 35.5 g/dl (32-36); MEAN PLATELET VOLUME 10.2 fL (7.4-10.4); MONO % 6.3 %; NEUT % 68.7 %; PLATELET COUNT 203 K/uL (130-400); WHITE BLOOD COUNT 6.22 K/uL (4.8-10.8)
[2017-09-16 17:01] LABS: ALT/SGPT 38 U/L (12-78); BLOOD UREA NITROGEN 18 mg/dl (7-18); CALCIUM 8.6 mg/dl (8.5-10.1); CARBON DIOXIDE 26 mmol/L (21-32); CHLORIDE 106 mmol/L (98-107); GLUCOSE 92 mg/dl (70-99); POTASSIUM 3.7 mmol/L (3.5-5.1); SODIUM 137 mmol/L (136-145)
[2017-09-16 17:04] LABS: ALB/GLOB RATIO 1.4 (0.9-2); ALKALINE PHOSPHATASE 91 U/L (45-117); AST/SGOT 21 U/L (15-37)
== END | disposition home or self-care (01) ==
LOC: C.LAB1850 15:57
PROVIDERS: ATTEND Psychiatry & Neurology Neurology
DX: Z51.81 Encounter for therapeutic drug level monitoring (principal); Z79.899 Other long term (current) drug therapy

== ENCOUNTER → 2017-09-21 | Outpatient (CLI) | payer BC ==
[2017-09-21 12:08] LABS: BASO % 0.2 %; BASO ABS # 0.01 K/uL (0-0.2); COMPLETE YES; EOS % 1.3 %; HEMATOCRIT 42.8 % (37-47); IG% 0.2 %; LYMPH % 19.1 %; LYMPH ABS # 1.02 K/uL (1.2-3.4); MEAN CELL VOLUME 98.4 fL (80-100); MEAN CORPUSCULAR HEMOGLOBIN 35.4 pg (25-34); MEAN PLATELET VOLUME 10.2 fL (7.4-10.4); MONO % 6.4 %; NEUT % 72.8 %; PLATELET COUNT 181 K/uL (130-400); RED BLOOD COUNT 4.35 M/uL (4.2-5.4); WHITE BLOOD COUNT 5.33 K/uL (4.8-10.8)
[2017-09-21 12:19] LABS: ALT/SGPT 32 U/L (12-78); BLOOD UREA NITROGEN 17 mg/dl (7-18); BUN/CREATININE RATIO 22.7 (10-20); CALCIUM 8.6 mg/dl (8.5-10.1); CARBON DIOXIDE 25 mmol/L (21-32); CHLORIDE 102 mmol/L (98-107); CHOLESTEROL 184 mg/dl (0-200); CREATININE 0.75 mg/dl (0.60-1.20); GLUCOSE 80 mg/dl (70-99); POTASSIUM 4.2 mmol/L (3.5-5.1); SODIUM 134 mmol/L (136-145)
[2017-09-21 12:29] LABS: ALB/GLOB RATIO 1.4 (0.9-2); ALKALINE PHOSPHATASE 88 U/L (45-117); AST/SGOT 18 U/L (15-37); CHOLESTEROL/HDL RATIO 2.3; HDL CHOLESTEROL 80 mg/dl; LDL CHOLESTEROL CALCULATED 87 mg/dl; TRIGLYCERIDES 83 mg/dl (0-150); VERY LOW DENSITY LIPOPROT CALC 17 mg/dl
== END | disposition home or self-care (01) ==
LOC: C.LAB1850 10:29
PROVIDERS: ATTEND Internal Medicine Pulmonary Disease
DX: I10 Essential (primary) hypertension (principal); J30.9 Allergic rhinitis, unspecified; G40.109 Localization-related (focal) (partial) symptomatic epilepsy and epileptic syndromes with simple partial seizures, not intractable, without status epilepticus; D32.0 Benign neoplasm of cerebral meninges

== ENCOUNTER → 2017-10-11 | Outpatient (CLI) | payer OTHER ==
--- NOTE | 2017-10-11 12:58 | DIAGNOSTIC IMAGING REPORT ---
(CHEST) THORAX WITHOUT CLINICAL HISTORY: R91.1 Pulmonary [id number] COMPARISON STUDY: 04/22/2017 CT DOSE: 208.92 mGy.cm TECHNIQUE: CT of the thorax was performed from the thoracic inlet to the lung bases. Images are reviewed in the axial, sagittal, and coronal planes. IV contrast was not administered for this examination. A dose lowering technique was utilized adhering to the principles of ALARA. FINDINGS: Thyroid: Imaged portions of the thyroid gland are normal in appearance. Thoracic aorta: The thoracic aorta is normal in course and caliber, noting standard 3 vessel arch anatomy. Heart: The heart is normal in size and configuration, without pericardial effusion. Lungs and pleural spaces: No pleural effusions are visualized. There is no focal pulmonary consolidation. There is a stable 3.5 mm right lower lobe pulmonary nodule as visualized in image #196/306. There is stable 3.5 mm subpleural right middle lobe pulmonary nodule as visualized in image #168/306. There is a stable perifissural 3.5 mm right upper lobe point nodule as visualized in image #129/306. There is a stable predominantly groundglass 3 mm right upper lobe pulmonary nodule as visualized in image #117/306. There is been 1 mm interval growth and 8 mm groundglass nodule within the right upper lobe as visualized in image #91/306. There is been 1 mm interval growth in an 11 mm groundglass right upper lobe point nodule as visualized in image #67/306. There is 0.5 mm interval growth a 7 mm right apical groundglass pulmonary nodule as visualized in image #49/306. There is a stable 4 mm groundglass left upper lobe pulmonary nodule as visualized in image #59/306. There is a stable 3 mm left upper lobe groundglass pulmonary nodule as visualized in image #82/306. There is 0.5 mm interval growth in a 5 mm groundglass left lower lobe pulmonary nodule as visualized in image #156/306. Mediastinum: There is no mediastinal lymphadenopathy. Mahnaz: There is no evidence of pathologic hilar adenopathy given the limitations of a noncontrast study Axilla: Axial lymph nodes remain the upper limits of normal in size. Upper abdomen: Partially visualized upper abdominal viscera is within normal limits. Skeletal structures: There are no lytic or blastic osseous lesions. IMPRESSION: Persistent multiple bilateral pulmonary nodules. The majority of the nodules are groundglass. The nodules are either stable or demonstrate minimal interval increase in size when compared the preceding study. The lesions are again viewed as suspicious for multifocal low-grade bronchogenic neoplasm. Electronically signed by: Andrea Landa M.D. 10/11/2017 12:57 PM Dictated Date/Time: 10/11/2017 12:45 PM
== END | disposition home or self-care (01) ==
LOC: C.CTS 12:29
PROVIDERS: ATTEND Internal Medicine Pulmonary Disease
DX: R91.1 Solitary pulmonary nodule (principal)

== ENCOUNTER → 2017-10-27 | Outpatient (CLI) | payer OTHER ==
[~2017-10-27] MED LIST changes: -LACO50TA PO; -ONDA4TAB46 PO; -OXYC1TAB3 PO; +PROB1TAB16 PO; -SULF800T23 PO
--- NOTE | 2017-10-27 10:38 | DIAGNOSTIC IMAGING REPORT ---
PET/CT HISTORY: PULMONARY NODULE TECHNIQUE: PET/CT was performed from the base of the skull through the pelvis following the intravenous administration of 13.3 mCi of F18-FDG. Non-contrast CT imaging was performed over the same range without breath-hold for attenuation correction of PET images and anatomic correlation, but not for primary interpretation as it is not of standard diagnostic quality. CT DOSE: COMPARISON: Chest CT 10/11/2017. FINDINGS: HEAD AND NECK: Symmetric FDG uptake within the brain. A 10 x 5 mm left posterior cervical chain lymph node which demonstrates minimal FDG uptake. This demonstrates an SUV max of 1.5. CHEST: No FDG avid mediastinal or hilar lymph nodes. No pleural or pericardial effusions. The axillary lymph nodes are morphologically within normal limits. However, there is a single lymph node within each axilla which demonstrates minimal FDG uptake with an SUV max of 0.9. These are of doubtful clinical significance. Multiple scattered groundglass nodules are again noted and not significantly changed. Dominant groundglass nodule within the right lung apex measures 11 mm on image 55. No new groundglass nodules identified. These do not demonstrate abnormal FDG uptake. There are few scattered subcentimeter solid nodules within the lungs which do not demonstrate abnormal FDG uptake. However, these are likely below the threshold for PET imaging. ABDOMEN/PELVIS: Below the diaphragm, tracer is distributed physiologically in the gastrointestinal and genitourinary tracts. There is no significant lymphadenopathy and no FDG-avid disease. Punctate stone within the left kidney. A 2.8 cm left ovarian cyst. MUSCULOSKELETAL: There is no FDG-avid or destructive bone lesion. IMPRESSION: 1. No change in the multiple scattered groundglass nodules with the largest in the right lung apex measuring 11 mm. These do not show abnormal FDG uptake. Regardless, these remain suspicious for low-grade bronchogenic neoplasms by CT criteria. 2. A few additional subcentimeter solid nodules within the lungs are also stable. These do not demonstrate abnormal FDG uptake but are likely below the threshold for PET imaging. Continued CT follow-up is recommended. 3. Minimal FDG uptake with an a single left posterior cervical chain lymph node and single bilateral axillary lymph nodes. However, these appear to be morphologically normal. Therefore, this may be reactive. Electronically signed by: Matthew Riley M.D. 10/27/2017 10:37 AM Dictated Date/Time: 10/27/2017 10:12 AM
== END | disposition home or self-care (01) ==
LOC: C.PET 07:04
PROVIDERS: ATTEND Surgery
DX: R91.8 Other nonspecific abnormal finding of lung field (principal)

== ENCOUNTER 2017-11-05 05:31 | Inpatient (IN) | payer OTHER ==
[2017-10-25 15:34] VITALS: BMI 24.0
[~2017-11-05] VITALS: Ht 157.5 cm; Wt 59.0 kg
[2017-11-05] VITALS (11 sets, daily range): BP systolic 114–155; BP diastolic 71–91; PULSE 66–92; TEMP 36.5–36.8; O2SAT 93–99; Ht 157.5 cm; Wt 59.0 kg
[2017-11-05] MEDS ORDERED: VTMB12 PO (05:55)
[2017-11-05] MEDS ORDERED: LACTATED RINGER'S 1000ML 1,000 ML IV SCH (06:00)
--- NOTE | 2017-11-05 06:52 | History & Physical Bridge Note ---
H&P Re-Evaluation Bridge Note: I have examined the patient, reviewed the History & Physical and in the interval since the performance of the History & Physical I have noted the following changes of clinical significance: No changes noted
[2017-11-05] MEDS ORDERED: PROPOFOL IV EMULSION 10 MG/ML 20 ML VIAL IV ONE (07:02)
[2017-11-05] MEDS ORDERED: FENTANYL CITRATE INJ 50 MCG/1 ML 2 ML VIAL ONE ×3 (07:02→10:04)
[2017-11-05] MEDS ORDERED: MIDAZOLAM HCL 1 MG/ML 2ML VIAL ONE (07:02)
[2017-11-05] MEDS ORDERED: CEFAZOLIN SOD 1 GM VIAL ONE (07:31)
[2017-11-05] MEDS ORDERED: ROCURONIUM BROMIDE 10 MG/ML 5 ML VIAL IV ONE ×2 (07:34→08:28)
[2017-11-05] MEDS ORDERED: DEXAMETHASONE SOD INJ 4 MG/ML VIAL ONE (07:34)
[2017-11-05] MEDS ORDERED: ONDANSETRON INJ 2 MG/ML 2 ML VIAL ONE ×2 (07:34→10:53)
[2017-11-05] MEDS ORDERED: SODIUM CHLORIDE 0.9% INJ 10 ML VIAL ONE (07:58)
[2017-11-05] MEDS ORDERED: SODIUM CHLORIDE 0.9% PF 50 ML VIAL ONE (07:58)
[2017-11-05] MEDS ORDERED: BUPIVACAINE LIPOSOME 1/3% 266 MG/20 ML VIAL INFIL ONE (07:58)
[2017-11-05] MEDS ORDERED: BUPIVACAINE 0.5 % 5 MG/1 ML MPF 30ML VIAL ONE (07:58)
[2017-11-05] MEDS ORDERED: PHENYLEPHRINE 100MCG/ML 5ML SYR ONE (08:28)
--- NOTE | 2017-11-05 09:56 | DIAGNOSTIC IMAGING REPORT ---
Intraoperative chest 2 views CLINICAL HISTORY: NAVIGATIONAL BRONCH right upper lobe wedge resection COMPARISON STUDY: CT scan dated 10/11/2017 FINDINGS: 2 fluoroscopic spot images are provided for interpretation. 1 minute 43 seconds of fluoroscopic time was utilized. The first image demonstrates a bronchoscope positioned within the right upper lobe bronchus. There is a right upper lobe fiducial marker. The second image demonstrates a fiducial marker. This may be within a resection specimen. IMPRESSION: Intraoperative fluoroscopic spot images as described above. Electronically signed by: Andrea Landa M.D. 11/05/2017 9:55 AM Dictated Date/Time: 11/05/2017 9:52 AM
[2017-11-05] MEDS ORDERED: EpHEDrine SULFATE 50MG/5ML SYR ONE (10:19)
[2017-11-05] MEDS ORDERED: GLYCOPYRROLATE INJ 0.2 MG/ML VIAL ONE (10:32)
[2017-11-05] MEDS ORDERED: NEOSTIGMINE METHYLSULFATE 5 MG/5 ML SYR ONE (10:32)
--- NOTE | 2017-11-05 10:53 | [facility] Post Operative Brief Note ---
Immediate Operative Summary Operative Date Nov 05, 2017. Pre-Operative Diagnosis Right Upper Lobe Nodule Post-Operative Diagnosis Adenocarcinoma Procedure(s) Performed Navigational Bronchoscopy with Biopsy and Fiducial Markers, Right Video Assisted Thoracoscopy with Right Upper Lobectomy and Mediastinal Lymphadenectomy Surgeon Dr. Andrea Sagastume Recreation Activities Coordinator Surgeon(s) Mando Lyons PA-C Estimated Blood Loss 75ml Findings See Below (adenocarcinoma right upper lobectomy) adenocarcinoma Specimens FROZEN SPECIMENS: #1) Level 7, out of OR2 @ 0904 #2) Level 10, out of OR2 @ 0930 #3) Right Upper Lobe, out of OR2 @ 1013 FRESH SPECIMENS: A.) Level 10 B.) Node 11, Level 1 C.) Node 11, Level 2 D.) R10, Level 2 E.) Level 12 F.) Level 4 x 2 G.) Level 2 Anesthesia Type General
[2017-11-05] MEDS ORDERED: ONDANSETRON INJ 2 MG/ML 2 ML VIAL IV PRN ×2 (11:00→11:30)
[2017-11-05] MEDS ORDERED: FLUTICASONE PROPIONATE NA SPR 16 GM BTL NAE PRN (11:00)
[2017-11-05] MEDS ORDERED: EpHEDrine SULFATE INJ 50 MG/ML AMP IV PRN (11:30)
[2017-11-05] MEDS ORDERED: NALOXONE HCL 0.4 MG/1 ML VIAL/CARP IV PRN (11:30)
[2017-11-05] MEDS ORDERED: MEPERIDINE HCL 25 MG/ML CARP IV PRN (11:30)
[2017-11-05] MEDS ORDERED: HYDROmorphone INJ 1 MG/ML SYR IV PRN (11:30)
[2017-11-05] MEDS ORDERED: LABETALOL HCL IV 5 MG/ML 20ML IV PRN (11:30)
[2017-11-05] MEDS ORDERED: FLUMAZENIL 0.1 MG/1 ML 10 ML VIAL IV PRN (11:30)
[2017-11-05] MEDS ORDERED: MoRPHine SULFATE 10 MG/ML CARP/VIAL IV PRN (11:30)
[2017-11-05] MEDS ORDERED: PHENYLEPHRINE 100MCG/ML 5ML SYR IV PRN (11:30)
[2017-11-05] MEDS ORDERED: ATROPINE SULFATE 0.1 MG/ML 5ML SYR IV PRN (11:30)
--- NOTE | 2017-11-05 11:38 | DIAGNOSTIC IMAGING REPORT ---
SINGLE VIEW CHEST CLINICAL HISTORY: Status post right upper lobe resection. FINDINGS: An AP, portable, upright chest radiograph is compared to study dated 04/14/2017 and correlated with chest CT dated 10/11/2017. The examination is degraded by portable technique and patient rotation. The cardiomediastinal silhouette is unremarkable. There are postoperative changes involving loss consistent with a history of right upper lobe resection. Trace pleural effusions are suspected. A chest tube is seen at the right apex. No definite pneumothorax is identified. Consolidative change is noted at the left lung base. No pneumothorax is seen. The bony thorax is grossly intact. IMPRESSION: 1. There are postoperative changes consistent with right upper lobe resection. 2. A chest tube is seen at the right apex. No pneumothorax is clearly seen. 3. Developing consolidative change is noted at the left lung base. This could represent atelectasis. Correlate clinically for evidence of pneumonia/aspiration pneumonitis. 4. Suspect trace pleural effusions. Electronically signed by: Don Baum M.D. 11/05/2017 11:36 AM Dictated Date/Time: 11/05/2017 11:34 AM
--- NOTE | 2017-11-05 11:48 | Anesthesiology Progress Note ---
Anesthesia Post Op Note Date & Time Nov 05, 2017 at 11:47 Vital Signs Pain Intensity: 2 Vital Signs Past 12 Hours Date Time Temp Pulse Resp B/P (MAP) Pulse Ox O2 Delivery O2 Flow Rate FiO2 11/05/17 11:35 87 16 126/86 97 Nasal Cannula 2 11/05/17 11:25 89 16 127/86 100 Oxymask 10 11/05/17 11:15 92 18 129/82 99 Oxymask 10 11/05/17 11:07 36.1 92 18 112/80 98 Oxymask 10 11/05/17 05:55 36.7 86 18 98 Room Air Notes Mental Status: alert / awake / arousable, participated in evaluation Pt Amnestic to Procedure: Yes Nausea / Vomiting: adequately controlled Pain: adequately controlled Airway Patency, RR, SpO2: stable & adequate BP & HR: stable & adequate Hydration State: stable & adequate Anesthetic Complications: no major complications apparent The patient is awake and stable in PACU.
--- NOTE | 2017-11-05 12:30 | OPERATIVE REPORT ---
DATE OF OPERATION: 11/05/2017 PREOPERATIVE DIAGNOSIS: Hypermetabolic mass, right upper lobe. POSTOPERATIVE DIAGNOSIS: Adenocarcinoma, right upper lobe. PROCEDURE: 1. Navigational bronchoscopy with marking of lesion with fiducial marker. 2. Thoracoscopic right upper lobectomy with mediastinal lymphadenectomy. SURGEON: Dr. Sagastume. EMPLOYMENT COACH: Mando Lyons (David Eloy was present for the entire case and manage the camera as well was passed instruments and closed the skin incisions at the conclusion of the case). ANESTHESIA: General anesthesia endotracheal intubation with a double lumen tube. SPECIFICS OF PROCEDURE AND FINDINGS: This is a 57-year-old female who has a history of cigarette smoking in the past, but actually is otherwise very healthy with adequate lung function who was found to have a mass in the right upper lobe. It was not very large. She had several small nodules, but she was worked up by Dr. Cruz and referred for discussion as she was very concerned about this. After discussion, she asked that we remove this. On 11/05/2017, I took the patient to the operating room and did a navigational bronchoscopy and I placed a fiducial marker in this mass. Unfortunately, it was deep into the lobe and the right upper lobe was small. I freed up the fissures and then upon evaluating it thoracoscopically, I felt that we should simply proceed with a lobectomy and this was done without difficulty. We had very little blood loss. I did a mediastinal lymphadenectomy. Frozen section showed this to be an adenocarcinoma. Margins were negative and we did do some frozen sections some preliminary lymph nodes which are negative for metastatic disease. She tolerated it well and was extubated in the room. DESCRIPTION OF PROCEDURE: The patient brought to the operating room and laid in supine position. General anesthesia induced and endotracheal intubation was performed with a single lumen tube. Fiberoptic bronchoscope was placed and the navigational probe was placed. The patient had been mapped preoperatively. We then registered all the airways and then went out into the right upper lobe and we were able to easily come upon this mass. It was rather deep in the lobe, so I did not use methylene blue dye. A fiducial marker was left in and we then removed the bronchoscope. There was no bleeding. There was no intraairway disease. She had no abnormalities. She was then switched to a lumen tube and turned into the left lateral decubitus position, her right chest prepped and draped in usual sterile fashion. A working channel was made at about the fourth interspace anterior to the latissimus dorsi muscle about 4 cm in length. A 10 mm incision was then made 2 interspaces below the tip of the scapula bit posteriorly and another was anteriorly about the eighth interspace just lateral to the mediastinum. There were no adhesions noted. She had fairly well-developed fissures. The fluoroscopy was then brought in and we could see the fiducial marker; however, it was very deep. I placed the stapler when I realized we will be removing more than half of the upper lobe. The upper lobe was small. I decided to free up the fissures more to see if we get a smaller wedge. I freed up the fissure which was fairly well developed between the middle lobe and the upper lobe and then the upper lobe and the lower lobe. I then freed up the posterior pleura, came down to the level 7 node and biopsied this. Frozen section showed this to have fibrosis and histiocytes but no evidence of cancer. I then freed up the upper lobe bronchus. After freeing up the fissures a bit more, I then used the fluoroscopy again and I just did not think this would leave her with a very good functioning upper lobe. She also had some smaller nodules and although they were not concerning, they were in the upper lobe also. For this reason, I decided to proceed with a lobectomy. Attention was first turned anteriorly and identified the middle lobe vein and fired an Endo-RON stapler across the upper lobe vein. I then went posteriorly as we had freed up the upper lobe bronchus quite nicely after biopsying the level 10 and 11 nodes posteriorly and the level 10 nodes anteriorly. Endo-RON stapler was fired across the bronchus. Of course, this freed this up quite nicely and after removing the lymph nodes in the level 10 area under the azygos vein distally, the branches to the upper lobe from the pulmonary artery were easily identified. I fired the stapler 4 separate times. This freed up quite nicely. I then used the Endo-RON stapler to complete the fissures anteriorly and then posteriorly and delivered the lobe off the field in an EndoCatch bag. I could palpate a mass. Frozen section was performed on this and this appeared to be an adenocarcinoma. Margins were negative. I then dissected out level 2 and level 4 lymph nodes. I also biopsied some level 12 nodes. I saw no other large lymph nodes which were concerning. We had no air leak upon insufflation of the lung. A 266 mg of Exparel mixed with 30 mL of 0.5% bupivacaine and 100 mL of normal saline and injected in an intercostal block from the 2nd all the way down to the 11th rib. I then used this to inject all 3 incisions also. A 24-Romanian chest tube was directed towards the apex from the anterior inferior incision. This was sutured in place with heavy silk suture. 0 Vicryl was used to close the muscle layers of the other 2 incisions. 4-0 Monocryl was used in running subcuticular fashion to approximate the wound edges. She tolerated it quite well, was awakened without difficulty in the operating room. She had no air leak at the conclusion of the case. I attest to the content of the Intraoperative Record and any orders documented therein. Any exception s are noted below.
[2017-11-05] MEDS: ACETAMINOPHEN IV 1,000 MG in EMPTY BAG 0 ML IV SCH ×2 (14:36→21:36)
[2017-11-05] MEDS: METOCLOPRAMIDE HCL INJ 5 MG/ML 2 ML VIAL IV. SCH ×2 (14:36→21:36)
[2017-11-05] MEDS: KETOROLAC TROMETHAMINE 15 MG/ML VIAL IV. SCH ×2 (14:37→21:36)
[2017-11-05] MEDS: OXYCODONE HCL IR 5 MG TAB (IMMEDIATE RELEASE) PO PRN (19:06)
[2017-11-05] MEDS: MoRPHine SULFATE 2 MG/ML CARP IV PRN ×2 (20:00→23:34)
[2017-11-05] MEDS: DOCUSATE SODIUM 100 MG CAP PO SCH (20:40)
[2017-11-05] MEDS: D5W AND 1/2NSS 1,000 ML IV SCH (20:41)
[2017-11-05] MEDS ORDERED: NURSING DECISION MEDICATION ORDER SCH (21:30)
[2017-11-05] MEDS ORDERED: INFLUENZA ADMINISTRATION CHARGE ONE (22:45)
[2017-11-05] MEDS ORDERED: INFLUENZA VIRUS QUAD VACCINE 0.5 ML SYR IM. ONE (22:45)
[2017-11-06] VITALS (7 sets, daily range): BP systolic 106–131; BP diastolic 66–81; PULSE 67–78; TEMP 36.5–36.9; O2SAT 91–98
[2017-11-06] MEDS: MoRPHine SULFATE 2 MG/ML CARP IV PRN ×5 (02:34→20:18)
[2017-11-06] MEDS: OXYCODONE HCL IR 5 MG TAB (IMMEDIATE RELEASE) PO PRN (04:39)
[2017-11-06] MEDS: ACETAMINOPHEN IV 1,000 MG in EMPTY BAG 0 ML IV SCH ×3 (05:46→21:59)
[2017-11-06] MEDS: METOCLOPRAMIDE HCL INJ 5 MG/ML 2 ML VIAL IV. SCH (05:46)
[2017-11-06] MEDS: KETOROLAC TROMETHAMINE 15 MG/ML VIAL IV. SCH ×3 (05:47→21:58)
[2017-11-06] MEDS: D5W AND 1/2NSS 1,000 ML IV SCH (05:50)
--- NOTE | 2017-11-06 07:12 | SURGERY PROGRESS NOTE ---
DATE: 11/06/2017 SUBJECTIVE: Ms. Stroud was seen today on 11/06/2017. She is 1 day status post a thoracoscopic right upper lobectomy and mediastinal lymphadenectomy for an early stage non-small cell lung carcinoma. She clinically looks quite good. She is on room air. She is ambulating in the hallway, tolerating a diet. Her vital signs are stable. Her chest tube really does not have an air leak. She has put out about 120 mL on this shift of serous fluid. Overall, I am quite pleased with her. She sounds good on auscultation. The only problem I have witnessed Luanne is the fact that she is having pain. In fact, I am surprised the amount of pain she is having. We did a block on her and I did not expect her to have the discomfort that she has. At any rate, I am hopeful that we get her chest tube out tomorrow or Wednesday that she will be better. Overall, I am quite pleased with her response.
--- NOTE | 2017-11-06 07:17 | DIAGNOSTIC IMAGING REPORT ---
CHEST ONE VIEW PORTABLE CLINICAL HISTORY: Postoperative evaluation. COMPARISON STUDY: Chest radiograph November 05, 2017 11:16 AM. FINDINGS: A right apical chest tube is in place. There is a trace right apical pneumothorax. Mild right perihilar opacity persists. Mild left basilar opacity has not significantly changed. Cardiac size is normal. There is no evidence for pulmonary edema. IMPRESSION: 1. Right apical chest tube in place with trace right apical pneumothorax. 2. Mild bilateral opacities which favor atelectasis. Electronically signed by: Pradip Motley M.D. 11/06/2017 7:16 AM Dictated Date/Time: 11/06/2017 7:14 AM
[2017-11-06] MEDS ORDERED: OXTELLAR 600 MG PO SCH ×2 (09:00→11:00)
[2017-11-06] MEDS ORDERED: POTASSIUM 99 MG PO SCH (09:00)
[2017-11-06] MEDS: DOCUSATE SODIUM 100 MG CAP PO SCH ×2 (09:31→20:19)
[2017-11-06] MEDS: VERAPAMIL HCL 240 MG TABCR PO SCH (09:31)
[2017-11-06] MEDS: LACTOBACILLUS ACIDOPHILUS (FLORANEX) TAB PO SCH (09:32)
[2017-11-06] MEDS: MULTIVITAMIN TAB PO SCH (09:32)
[2017-11-06] MEDS: CYANOCOBALAMIN 500 MCG TAB (VIT B-12) PO SCH (09:33)
[2017-11-06] MEDS: TOCOPHERYL, DL-ALPHA 400 INTER.UNIT CAP PO SCH (09:33)
[2017-11-06] MEDS: ENOXAPARIN 40 MG/0.4 ML SYR SQ SCH (09:34)
--- NOTE | 2017-11-06 11:54 | Medical Student: [facility] ---
Immediate Operative Summary Operative Date Nov 05, 2017. Pre-Operative Diagnosis Right upper lobe nodule Post-Operative Diagnosis Adenocarcinoma of RT upper lobe Procedure(s) Performed Navigational bronchoscopy with biopsy and markers Right video-assisted thoracoscopy Right upper lobectomy Mediastinal lymphadedenectomy Surgeon Dr. Sagastume Mechanical Maintenance Supervisor Surgeon(s) LASHAWN Barragan Estimated Blood Loss 75mL Findings Adenocarcinoma of RT upper lobe per pathology report resulting in a lobectomy and mediastinal lymphadenectomy Specimens Level 2 lymph node - Fresh Level 4 lymph nodes (1 +2) - Fresh Level 7 lymph node - Frozen Level 10 lymph node - Frozen Level 10 lymph node - Fresh Level 11 lymph nodes (1 +2)- Fresh Level 12 lymph node - Fresh Right upper lobe - Frozen Drains RT sided chest tube Anesthesia General Complication(s) Minor bleeding from small branch of RT superior trunk pulmonary artery along staple/incision line. Corrected with 5mm clip with complete resolution of leakage Disposition Recovery Room / PACU
[2017-11-07 00:15] VITALS: BP 133/81; PULSE 69; TEMP 36.7; O2SAT 94
[2017-11-07] MEDS: OXYCODONE HCL IR 5 MG TAB (IMMEDIATE RELEASE) PO PRN ×2 (03:18→10:28)
[2017-11-07] MEDS: KETOROLAC TROMETHAMINE 15 MG/ML VIAL IV. SCH (05:31)
[2017-11-07] MEDS: ACETAMINOPHEN IV 1,000 MG in EMPTY BAG 0 ML IV SCH (05:32)
[2017-11-07 07:04] VITALS: BP 124/80; PULSE 71; TEMP 36.6; O2SAT 96
--- NOTE | 2017-11-07 07:26 | DIAGNOSTIC IMAGING REPORT ---
CHEST ONE VIEW PORTABLE CLINICAL HISTORY: 57 years-old Female presenting with lung resection . TECHNIQUE: Portable upright AP view of the chest was obtained. COMPARISON: 11/06/2017. FINDINGS: Large bore right pleural drain remains positioned at the right apex. Retraction of the right hilum superiorly likely postsurgical change. Suture margin noted along the superior right hilum. Atherosclerosis of the aorta. Cardiac silhouette normal in size. Trace right apical pneumothorax unchanged. Persistent left basilar opacity and possible trace left pleural effusion. Osseous structures normal. Upper abdomen normal. IMPRESSION: 1. Postsurgical changes of the right lung with stable trace right apical pneumothorax. 2. Large bore right pleural drain remains in place. 3. Persistent left basilar opacity likely atelectasis possibly with trace left pleural effusion. Electronically signed by: Lawrence Clancy M.D. 11/07/2017 7:25 AM Dictated Date/Time: 11/07/2017 7:23 AM
[2017-11-07] MEDS ORDERED: ACET325T95 PO (08:36)
[2017-11-07] MEDS ORDERED: HYDR-3419 PO (08:36)
[2017-11-07] MEDS ORDERED: IBUP-1050 PO (08:36)
[2017-11-07] MEDS ORDERED: CLC100 PO (08:36)
--- NOTE | 2017-11-07 08:38 | Discharge Instructions ---
Discharge Instructions Date of Service Nov 07, 2017. Admission Reason for Admission: Pulmonary Nodule Discharge Discharge Diagnosis / Problem: Pulmonary Nodule Discharge Goals Goal(s): Learn about illness Activity Recommendations Activity Limitations: as noted below Lifting Limitations: none 1. You may remove dressings in 3 days and shower thereafter. No tube baths. 2. Do not drive if taking vicodin. 3. Do not drive until cleared to do so by Dr. Sagastume. 4. Do not take tylenol if using vicodin. . Instructions / Follow-Up Instructions / Follow-Up 1. Office appointment with Dr. Sagastume in 1 week. Office will call with date and time of appointment. Go to hospital 1 hour before appointment to have a chest x-ray taken. Current Hospital Diet Patient's current hospital diet: Regular Diet Discharge Diet Recommended Diet: Regular Diet Procedures Procedures Performed: Navigational Bronchoscopy with Biopsy and Fiducial Markers, Right Video Assisted Thoracoscopy with Right Upper Lobectomy and Mediastinal Lymphadenectomy Pending Studies Studies pending at discharge: no Laboratory Results Lipid Panel Test 09/21/17 10:37 Range/Units Triglycerides Level 83 0-150 mg/dl Cholesterol Level 184 0-200 mg/dl HDL Cholesterol 80 mg/dl Cholesterol/HDL Ratio 2.3 LDL Cholesterol, Calculated 87 mg/dl Medical Emergencies . Who to Call and When: Medical Emergencies: If at any time you feel your situation is an emergency, please call 911 immediately. . Non-Emergent Contact Non-Emergency issues call your: Surgeon Call Non-Emergent contact if: you have a fever, your pain is not controlled, wound has increased drainage . "Provider Documentation" section prepared by Mando Lyons. . VTE Core Measure Inpt VTE Proph given/why not?: Enoxaparin (Lovenox)SQ
--- NOTE | 2017-11-07 08:46 | DIAGNOSTIC IMAGING REPORT ---
CHEST ONE VIEW PORTABLE CLINICAL HISTORY: 57 years-old Female presenting with tube removal . TECHNIQUE: Portable upright AP view of the chest was obtained. COMPARISON: 11/07/2017 at 6:42 AM. FINDINGS: Interval removal of the large bore right pleural drain. Atherosclerosis of the aortic arch. Cardiac silhouette normal in size. Postsurgical changes of the paramediastinal right apex. Minimal trace right apical pneumothorax may still be present. Left basilar opacity unchanged. Small left pleural effusion suspected. Osseous structures normal. Upper abdomen normal. IMPRESSION: 1. Remove all of the large bore right pleural drain with minimal trace right apical pneumothorax possibly still present. 2. Post surgical changes of the right lung. 3. Left basilar atelectasis and small pleural effusion. Electronically signed by: Lawrence Clancy M.D. 11/07/2017 8:45 AM Dictated Date/Time: 11/07/2017 8:43 AM
[2017-11-07] MEDS: CYANOCOBALAMIN 500 MCG TAB (VIT B-12) PO SCH (08:56)
[2017-11-07] MEDS: TOCOPHERYL, DL-ALPHA 400 INTER.UNIT CAP PO SCH (08:56)
[2017-11-07] MEDS: DOCUSATE SODIUM 100 MG CAP PO SCH (08:57)
[2017-11-07] MEDS: LACTOBACILLUS ACIDOPHILUS (FLORANEX) TAB PO SCH (08:57)
[2017-11-07] MEDS: MULTIVITAMIN TAB PO SCH (08:58)
[2017-11-07] MEDS: VERAPAMIL HCL 240 MG TABCR PO SCH (08:58)
[2017-11-07] MEDS: ENOXAPARIN 40 MG/0.4 ML SYR SQ SCH (08:59)
[2017-11-07 09:30] VITALS: BP 124/80; PULSE 71; TEMP 36.6; O2SAT 96
--- NOTE | 2017-11-07 11:29 | Discharge Summary ---
Discharge Summary Date of Service Nov 07, 2017. Discharge Summary Admission Date: Nov 05, 2017 at 08:40 Discharge Date: Nov 07, 2017 Discharge Disposition: Home Principal Diagnosis: Right Lung Mass/Adenocarcinoma Procedures: 1. Navigational bronchoscopy with placement of fiducial marker 2. Right VATS with RUL and Lymphadenectomy Medication Reconciliation New Medications: Acetaminophen (Tylenol) 325 Mg Tab 650 MG PO Q6H PRN for Pain for 30 Days, 0 Refills Hydrocodon/Acetaminophen 5MG/300MG (Vicodin (5MG/300MG)) 1 Tab Tab 1 TAB PO Q4H PRN for Pain, #25 TAB Ibuprofen (Advil) 200 Mg Tab 400 MG PO Q6 PRN for Pain for 30 Days, #240 TAB Docusate Sodium (Docusate Sodium) 100 Mg Cap 100 MG PO BID for 30 Days, #60 CAP 0 Refills Continued Medications: Clobetasol Propionate (Clobetasol Propionate Cream 0.05%) 90 Appln/30 Gm Cr 1 APPLN TOP BID PRN for AFFECTED SKIN AREA, TUBE Cyanocobalamin (Vitamin B-12) 500 Mcg Tab 1 PO DAILY Fluticasone Propionate (Nasal) (Flonase Allergy Relief) 50 Mcg/Act Spr 1 SPRAYS KAYCEE HS PRN for Seasonal Allergies Multivitamin (Multivitamin) Tab 1 TAB PO QAM, TAB Oxcarbazepine (Oxtellar Xr) 600 Mg Tab 1800 MG PO QAM Potassium (Gnp Potassium) Unknown Strength Tab 99 MG PO QAM Probiotic Product (Probiotic) 1 Tab Tab 1 TAB PO QAM Valacyclovir (Valtrex) 500 Mg Tab 1 TAB PO QAM for 30 Days Verapamil Hcl (Verapamil Hcl Er) 240 Mg Cap 1 CAP PO QAM for 90 Days, #90 CAP 3 Refills Vitamin E (E-400) 400 Unit Cap 400 UNITS PO QAM Discharge Exam Review of Systems: Constitutional: No fever, No chills Respiratory: No cough, No shortness of breath Cardiovascular: No chest pain Abdomen: No pain, No nausea, No vomiting Physical Exam: General Appearance: WD/WN, no apparent distress Respiratory/Chest: no respiratory distress, no accessory muscle use, + decreased breath sounds (at bases) Cardiovascular: regular rate, rhythm Abdomen / GI: non tender, soft Extremities: no calf tenderness Neurologic/Psychiatric: alert, oriented x 3 Hospital Course 57 year old female with right lung mass -Right VATS with RUL performed on 11/05/17: -frozen section revealed adenocarcinoma -final path pending at time of d/c -chest tube managed in appropriate fashion and d/c on 11/07/17: -post pull CXR showed only trace apical pneumothorax -pain control measures implemented -ambulation, coughing, deep breathing, and use of IS encouraged -OTHER -lovenox used for DVT prevention Total Time Spent: Greater than 30 minutes This includes examination of the patient, discharge planning, medication reconciliation, and communication with other providers. Discharge Instructions Please refer to the electronic Patient Visit Report (Discharge Instructions) for additional information. Follow-Up 1. Dr. Sagastume in 1 week with repeat CXR Additional Copies To Yury Cruz M.D.
== END 2017-11-07 11:18 | disposition home or self-care (01) | DRG 168 ==
LOC: C.ACU 05:31 → C.MSN 08:40 → ENRESERV 11:34
PROVIDERS: ADMIT Surgery; ATTEND Surgery
PROC: 0BBC4ZX Excision of Right Upper Lung Lobe, Percutaneous Endoscopic Approach, Diagnostic (ICD-10-PCS; principal; 2017-11-05 07:15)
PROC: 0BJK4ZZ Inspection of Right Lung, Percutaneous Endoscopic Approach (ICD-10-PCS; principal; 2017-11-05 07:15)
DX: C34.2 Malignant neoplasm of middle lobe, bronchus or lung (principal); Z87.891 Personal history of nicotine dependence; E78.5 Hyperlipidemia, unspecified

== ENCOUNTER 2017-11-14 23:11 | Emergency (ER) | payer OTHER ==
[~2017-11-14] VITALS: Ht 157.5 cm; Wt 62.0 kg
[~2017-11-14 23:11] MED LIST changes: +CLC100 PO; +HYDR-3419 PO; +IBUP-1050 PO; +TYLOTC325 PO; +VTMB12 PO
[2017-11-14 23:16] VITALS: TEMP 36.7; Ht 157.5 cm; Wt 62.0 kg
[2017-11-15] MEDS ORDERED: KETOROLAC TROMETHAMINE 60 MG/2 ML VIAL IM STA (01:05)
[2017-11-15 01:07] VITALS: BP 158/78; PULSE 88; O2SAT 98
--- NOTE | 2017-11-15 01:07 | EMERGENCY ROOM VISIT NOTE ---
History First contact with patient: 23:18 Chief Complaint: WOUND INFECTION Stated Complaint: LUMP UNDER SKIN(LOWER ABD) BLUE COLOR Nursing Triage Summary: c/o a small black and blue area rlq with a lump. unsure if she was given any sub q injections there when hospitalized for lobeectomy in nov. History of Present Illness The patient is a 57 year old female who presents to the Emergency Room with complaints of bruise to her right lower abdomen. Patient was hospitalized last week for lobectomy for possible lung carcinoma. Patient was unsure if she received any medicines. Patient noticed the bruise today. Patient states she does not routinely look at her abdomen. Patient denies chest pain, no dyspnea, fevers, bruising to other areas. Patient sees pulmonology tomorrow for follow- up. Review of Systems An 10 system review of systems was completed with positives and pertinent negatives listed in the HPI. Past Medical/Surgical History Medical Problems: (1) Hypertension (2) Lung cancer Family History Patient reports no known family medical history. Social History Smoking Status: Never Smoker Marital Status: in relationship Housing Status: lives with significant other Occupation Status: employed Current/Historical Medications Scheduled Cyanocobalamin (Vitamin B-12), 1 PO DAILY Docusate Sodium (Docusate Sodium), 100 MG PO BID Multivitamin (Multivitamin), 1 TAB PO QAM Oxcarbazepine (Oxtellar Xr), 1,800 MG PO QAM Potassium (Gnp Potassium), 99 MG PO QAM Probiotic Product (Probiotic), 1 TAB PO QAM Valacyclovir (Valtrex), 1 TAB PO QAM Verapamil Hcl (Verapamil Hcl Er), 1 CAP PO QAM Vitamin E (E-400), 400 UNITS PO QAM Scheduled PRN Acetaminophen (Tylenol), 650 MG PO Q6H PRN for Pain Clobetasol Propionate (Clobetasol Propionate Cream 0.05%), 1 APPLN TOP BID PRN for AFFECTED SKIN AREA Fluticasone Propionate (Nasal) (Flonase Allergy Relief), 1 SPRAYS KAYCEE HS PRN for Seasonal Allergies Hydrocodon/Acetaminophen 5MG/300MG (Vicodin (5MG/300MG)), 1 TAB PO Q4H PRN for Pain Ibuprofen (Advil), 400 MG PO Q6 PRN for Pain Physical Exam Vital Signs Date Time Temp Pulse Resp B/P (MAP) Pulse Ox O2 Delivery O2 Flow Rate FiO2 11/14/17 23:16 36.7 74 18 162/90 98 Room Air Physical Exam VITALS: Vitals are noted on the nurse's note and reviewed by myself. Vital signs stable. GENERAL: White female, in no acute distress, nondiaphoretic, well-developed well -nourished. SKIN: Capillary reflex less than 2 seconds. HEENT: Normocephalic. PERRLA. EOMI. Nares patent. Mucous membranes moist. Neck is supple without nuchal rigidity. HEART: Regular rate and rhythm LUNGS: Clear to auscultation bilaterally without wheezes, rales or rhonchi. No retractions or accessory muscle use. ABDOMEN: Positive bowel sounds x 4. Normal tympanic percussion. Soft, right lower quadrant with 2 cm x 2 cm contusion most consistent with injection site bruise from Lovenox nontender, without masses or organomegaly. Lugo sign negative. No guarding or rebound tenderness. MUSCULOSKELETAL: No gross musculoskeletal defects. NEURO: Patient was alert and oriented to person place and time. Normal sensation to light and sharp touch. No focal neurological deficits. Medical Decision & Procedures ED Course Prior records reviewed and summarized as above. Triage Nursing notes reviewed. Additional history obtained from Mother. The patient's history was concerning for bruise to abdominal wall. Differential diagnosis: Etiologies such as abdominal wall hematoma, cellulitis, abscess, dermatitis, drug eruption, as well as others were entertained.. Physical examination: The physical examination was consistent with abdominal wall contusion most likely from the Lovenox shots she received while in the hospital ER treatment provided: pt was observed On reassessment the patient felt better. Diagnostics interpreted by me: Imaging studies: Superficial collection in the region of interest of the right lower quadrant that does not involve the adjacent musculature. No increased vascularity. Differential would include older hematoma. This appears to be isolated abdominal wall contusion most likely from the Lovenox shot while received in the hospital. Patient did not have an acute abdomen on exam. She is well appearing. No other bruising was noted. She was neurovascularly and neurologically intact. She was informed that it takes 2-3 weeks for the contusion to resolve. She is advised to follow-up tomorrow as scheduled with her turbine attendant or here in the ER sooner for abdominal pain, fevers, lethargy, worsening sinus symptoms or as needed. By the evaluation outlined above emergent etiologies such as abscess, as well as others were deemed relatively unlikely. The pt informed about the findings as listed above. All questions were answered and pleased with the treatment. Return instructions were outlined and the patient was discharged in stable condition. Referral: The patient was referred back to pulmonology and/or primary care physician for follow-up in 2 to 3 days for a recheck of the current condition. Medical Decision As above Medication Reconcilliation Current Medication List: was personally reviewed by me Blood Pressure Screening Patient's blood pressure: Elevated blood pressure Blood pressure disposition: Referred to PCP Impression Primary Impression: Abdominal wall contusion Departure Information Dispostion Home / Self-Care Condition GOOD Referrals Yury Cruz M.D. (PCP) Patient Instructions My [facility] Additional Instructions It takes 2-3 weeks for contusions to resolve. Follow-up tomorrow as scheduled with your turbine attendant. Return to ER sooner for abdominal pain, fevers, chest pain, worsening signs or symptoms or as needed. Problem Qualifiers Primary Impression: Abdominal wall contusion Encounter type: initial encounter Qualified Codes: S30.1XXA - Contusion of abdominal wall, initial encounter
--- NOTE | 2017-11-15 07:08 | DIAGNOSTIC IMAGING REPORT ---
ABDOMEN LIMITED (US) CLINICAL HISTORY: 57 years-old Female presenting with RLQ bruise, ? extent. TECHNIQUE: Real-time grayscale ultrasound imaging of the right lower quadrant abdominal wall was performed for a focused evaluation at the site of clinical concern. Color Doppler was also performed. COMPARISON: CT from 04/11/2017. FINDINGS: At the site of clinical concern in the right lower quadrant, a heterogeneous avascular collection measuring 1.8 x 1.9 x 0.7 cm is noted in the subcutaneous fat. Peripheral hyperechogenicity of the region could suggest inflamed fat. Central hypoechogenicity noted. This does not involve the subjacent abdominal wall musculature. IMPRESSION: 1. Small superficial subcutaneous collection in the right lower quadrant abdominal wall may represent fat necrosis or a small hematoma. Abscess is considered less likely. Electronically signed by: Lawrence Clancy M.D. 11/15/2017 7:07 AM Dictated Date/Time: 11/15/2017 7:04 AM
== END 2017-11-15 01:25 | disposition home or self-care (01) ==
LOC: C.EDB 23:12
DX: S30.1XXA Contusion of abdominal wall, initial encounter (principal); I10 Essential (primary) hypertension; Z79.899 Other long term (current) drug therapy; Z90.2 Acquired absence of lung [part of]; Z85.118 Personal history of other malignant neoplasm of bronchus and lung; X58.XXXA Exposure to other specified factors, initial encounter

== ENCOUNTER → 2017-11-15 | Outpatient (CLI) | payer OTHER ==
--- NOTE | 2017-11-15 09:21 | DIAGNOSTIC IMAGING REPORT ---
CHEST 2 VIEWS ROUTINE CLINICAL HISTORY: 57 years-old Female presenting with R91.1 Pulmonary nodules/p RIGHT UPPER LOBECTOMY, MEDIASTINAL SHELL. TECHNIQUE: PA and lateral views of the chest were obtained. COMPARISON: 11/07/2017. FINDINGS: Cardiomediastinal silhouette normal. Right paramediastinal suprahilar opacity unchanged. Elevation of the right hemidiaphragm. Left lung and pleural space clear. Trace bilateral pleural effusions may be present. No pneumothorax. Osseous structures normal. Upper abdomen normal. IMPRESSION: 1. Postsurgical changes of the right suprahilar region from recent right upper lobectomy. 2. No new focal infiltrate. 3. Possible trace bilateral pleural effusions. Electronically signed by: Lawrence Clancy M.D. 11/15/2017 9:19 AM Dictated Date/Time: 11/15/2017 9:17 AM
== END | disposition home or self-care (01) ==
LOC: C.RAD1850 08:59
PROVIDERS: ATTEND Surgery
DX: R91.1 Solitary pulmonary nodule (principal); Z90.2 Acquired absence of lung [part of]

== ENCOUNTER → 2017-11-17 | Outpatient (CLI) | payer OTHER | END | disposition home or self-care (01) | LOC: C.PAPS 11:25 | PROVIDERS: ATTEND Obstetrics & Gynecology | DX: Z12.4 Encounter for screening for malignant neoplasm of cervix (principal) ==

== ENCOUNTER → 2017-12-13 | Outpatient (CLI) | payer OTHER ==
[~2017-12-13] MED LIST changes: -IBUP-1050 PO
--- NOTE | 2017-12-13 09:43 | DIAGNOSTIC IMAGING REPORT ---
CHEST 2 VIEWS ROUTINE CLINICAL HISTORY: R91.1 Pulmonary [id number] lung nodule COMPARISON STUDY: 11/15/2017 FINDINGS: Operative changes of right upper lobectomy are again noted. Increased density in the right para mediastinal region is improved. Minimal residual diaphragmatic scarring right base. Left lung is clear. IMPRESSION: Improving postoperative changes of right upper lobectomy. Mild residual postprocedural scar formation. The above report was generated using voice recognition software. It may contain grammatical, syntax or spelling errors. Electronically signed by: Aniket Marr M.D. 12/13/2017 9:42 AM Dictated Date/Time: 12/13/2017 9:41 AM
== END | disposition home or self-care (01) ==
LOC: C.LAB1850 09:26
PROVIDERS: ATTEND Surgery
DX: R91.1 Solitary pulmonary nodule (principal); Z90.2 Acquired absence of lung [part of]

== ENCOUNTER → 2018-05-24 | Outpatient (CLI) | payer OTHER ==
[~2018-05-24] MED LIST changes: -HYDR-3419 PO
--- NOTE | 2018-05-24 14:15 | DIAGNOSTIC IMAGING REPORT ---
CT OF THE CHEST WITHOUT IV CONTRAST CLINICAL HISTORY: Lung adenocarcinoma. COMPARISON STUDY: Chest CT October 11, 2017, PET/CT October 27, 2017 and chest radiograph December 13, 2017. CT DOSE: 186.74 mGy.cm TECHNIQUE: Axial images of the chest were obtained without IV contrast. Images were reviewed in the axial, sagittal, and coronal planes. IV contrast was not administered for this examination. A dose lowering technique was utilized adhering to the principles of ALARA. FINDINGS: No enlarged axillary, mediastinal or hilar lymph nodes are present. The size of the heart is normal. There is no pericardial effusion. There are expected findings following right upper lobectomy. Minimal density within the operative bed is within normal limits. There is no pneumothorax or pleural effusion. Several groundglass nodules are similar to PET/CT of October 27, 2017 and either unchanged or only minimally increased since CT of April 22, 2017. These include a 7 mm left lower lobe lesion shown image 165 of 286, a 5 mm left upper lobe lesion shown image 60 and a 3 mm lesion within the left upper lobe shown on image 80. A few scattered solid subpleural nodules remain unchanged as well. No new pulmonary nodules are present. Deformity of the lateral right eighth rib favors a healing fracture. Upper abdomen is unremarkable. No suspicious osseous lesions are noted. IMPRESSION: 1. Expected findings following right upper lobectomy. 2. No change in several groundglass and solid nodules since PET/CT of October 27, 2017. The groundglass nodules favor low-grade neoplasms and continued imaging follow-up is recommended. 3. No thoracic lymphadenopathy. 4. Sclerosis of the lateral right eighth rib which favors a healing fracture. This can be assessed on subsequent exams to ensure expected evolution. Electronically signed by: Pradip Motley M.D. 05/24/2018 2:13 PM Dictated Date/Time: 05/24/2018 1:55 PM
== END | disposition home or self-care (01) ==
LOC: C.CTS 13:10
PROVIDERS: ATTEND Surgery
DX: C34.90 Malignant neoplasm of unspecified part of unspecified bronchus or lung (principal); Z90.2 Acquired absence of lung [part of]